=== PATIENT | female | born 1945 | race African-American/Black ===

== ENCOUNTER 2017-06-04 11:18 | Inpatient (IN) | payer MEDICARE ==
[2017-06-04 13:26] LABS: Basophils # (Auto) 0.1 K/mm3 (0.0-0.1); Basophils % (Auto) 0.7 % (0.0-1.8); Eosinophils # (Auto) 0.1 K/mm3 (0.0-0.4); Eosinophils % (Auto) 1.7 % (0.0-4.3); Hematocrit 38.7 % (30.3-42.9); Lymphocytes # (Auto) 1.9 K/mm3 (1.2-5.4); Lymphocytes % (Auto) 22.5 % (13.4-35.0); Mean Corpuscular HGB Conc 34 % (30-34); Mean Corpuscular Hemoglobin 30 pg (28-32); Mean Corpuscular Volume 90 fl (79-97); Monocytes # (Auto) 0.6 K/mm3 (0.0-0.8); Monocytes % (Auto) 7.2 % (0.0-7.3); Platelet Count 327 K/mm3 (140-440); Red Blood Count 4.29 M/mm3 (3.65-5.03); Red Cell Distribution Width 13.5 % (13.2-15.2)
--- NOTE | 2017-06-04 13:35 | XRay Report ---
ROUTINE CHEST, TWO VIEWS: HISTORY: Shortness of breath. No recent comparison. Mild cardiomegaly and large left pleural effusion or identified. The left lower lobe and lingula are compressed and non-aerated. The right lung is clear. The bony structures are grossly intact. IMPRESSION: Cardiomegaly. Large left pleural effusion.
[2017-06-04 13:44] LABS: BUN/Creatinine Ratio 20; Blood Urea Nitrogen 10 mg/dL (7-17); Calcium 9.4 mg/dL (8.4-10.2); Hemolysis Index 10
--- NOTE | 2017-06-04 17:03 | Emergency Department Report ---
ED Shortness of Breath HPI - General Chief Complaint: Dyspnea/Respdistress Stated Complaint: ANDREI,FLUID L LUNG Time Seen by Provider: 06/04/17 16:36 Source: patient, old records reviewed (no previous metabolic workup) Mode of arrival: Ambulatory Limitations: No Limitations - History of Present Illness Initial Comments: 72 year old female with a past medical history diabetes hypothyroidism with a history of partial thyroid resection presents to the hospital complains of dyspnea times one month. Symptoms primarily felt when trying to sleep. Positive orthopnea. Patient states symptoms worsened after getting a flu shot last week. Denies fever. Mild cough cough reported. Patient saw primary care doctor did an x-ray and noted a large left pleural effusion as an inpatient to the hospital for further treatment. Patient sent to the ED by Dr. Rosenbaum office [phone] [place] - Related Data Home Medications Medication Instructions Recorded Confirmed Last Taken Alendronate Sodium [Fosamax] 70 mg PO QWEEK 06/04/17 06/04/17 Unknown Fluticasone [Flonase] 1 spray INNOSTRIL DAILY 06/04/17 06/04/17 Unknown Levothyroxine [Synthroid] 75 mcg PO DAILY 06/04/17 06/04/17 Unknown Losartan [Cozaar] 50 mg PO DAILY 06/04/17 06/04/17 Unknown Pravastatin [Pravachol] 40 mg PO DAILY 06/04/17 06/04/17 Unknown metFORMIN [Glucophage] 500 mg PO BID 06/04/17 06/04/17 Unknown Allergies Allergy/AdvReac Type Severity Reaction Status Date / Time No Known Allergies Allergy Verified 06/04/17 12:29 ED Review of Systems ROS: Stated complaint: ANDREI,FLUID L LUNG Other details as noted in HPI Comment: All other systems reviewed and negative Other: Constitutional: No fevers chills. Possible weight loss Eyes: No eye pain visual changes or discharge ENT: No ear pain or throat pain Neck: Denies pain Respiratory: As per HPI Cardiovascular: Denies chest pain, palpitations, syncope GI: Denies abdominal pain, nausea, vomiting, diarrhea, : Denies dysuria Musculoskeletal: Denies back pain Skin: Denies rash, lesions, erythema Neurologic: Denies headache, numbness, weakness Psychiatric: Denies suicidal ideation, hallucinations ED Past Medical Hx - Past Medical History Hx Diabetes: Yes Additional medical history: Hypothyroidism - Surgical History Past Surgical History?: Yes Additional Surgical History: Partial tyroid resection - Medications Home Medications: Home Medications Medication Instructions Recorded Confirmed Last Taken Type Alendronate Sodium [Fosamax] 70 mg PO QWEEK 06/04/17 06/04/17 Unknown History Fluticasone [Flonase] 1 spray INNOSTRIL DAILY 06/04/17 06/04/17 Unknown History Levothyroxine [Synthroid] 75 mcg PO DAILY 06/04/17 06/04/17 Unknown History Losartan [Cozaar] 50 mg PO DAILY 06/04/17 06/04/17 Unknown History Pravastatin [Pravachol] 40 mg PO DAILY 06/04/17 06/04/17 Unknown History metFORMIN [Glucophage] 500 mg PO BID 06/04/17 06/04/17 Unknown History ED Physical Exam - General Limitations: No Limitations - Other Other exam information: General: No limitations, patient is alert in no acute distress Head exam: Atraumatic, normocephalic Eyes exam: Normal appearance ENT: Moist mucous membrane, normal oropharynx Neck exam: Normal inspection, full range of motion, no meningismus nontender Respiratory exam: Diminished breath sounds left lung field, no tachypnea or accessory muscle use Cardiovascular: Normal rate and rhythm Abdomen: Soft, nondistended, and nontender, with normal bowel sounds, no rebound, or guarding Extremity: Full range of motion normal inspection no deformity, no calf tenderness or edema Back: Normal Inspection, full range of motion, no tenderness Neurologic: Alert, oriented x3, cranial nerves intact, no motor or sensory deficit Psychiatric: normal affect, normal mood Skin: Warm, dry, intact ED Course Vital Signs 06/04/17 06/04/17 06/04/17 12:29 16:49 17:05 Temperature 97.5 F L 98.2 F Pulse Rate 91 H 90 Respiratory 22 20 Rate Blood Pressure 118/78 Blood Pressure 107/61 [Left] O2 Sat by Pulse 91 96 96 Oximetry - Reevaluation(s) Reevaluation #1: 06/04/17 17:18 Patient stable no distress noted - Consultations Consultation #1: 06/04/17 16:[address] Contreras bit shaver electronic train control technician will consult ED Medical Decision Making - Lab Data Result diagrams: 06/04/17 13:14 12/29/17 13:14 Lab Results 06/04/17 06/04/17 Range/Units 13:14 13:14 WBC 8.5 (4.5-11.0) K/mm3 RBC 4.29 (3.65-5.03) M/mm3 Hgb 13.0 (10.1-14.3) gm/dl Hct 38.7 (30.3-42.9) % MCV 90 (79-97) fl MCH 30 (28-32) pg MCHC 34 (30-34) % RDW 13.5 (13.2-15.2) % Plt Count 327 (140-440) K/mm3 Lymph % (Auto) 22.5 (13.4-35.0) % [place] % (Auto) 7.2 (0.0-7.3) % Eos % (Auto) 1.7 (0.0-4.3) % Baso % (Auto) 0.7 (0.0-1.8) % Lymph # 1.9 (1.2-5.4) K/mm3 [place] # 0.6 (0.0-0.8) K/mm3 Eos # 0.1 (0.0-0.4) K/mm3 Baso # 0.1 (0.0-0.1) K/mm3 Seg Neutrophils % 67.9 (40.0-70.0) % Seg Neutrophils # 5.7 (1.8-7.7) K/mm3 Sodium 142 (137-145) mmol/L Potassium 4.6 (3.6-5.0) mmol/L Chloride 100.6 (98-107) mmol/L Carbon Dioxide 27 (22-30) mmol/L Anion Gap 19 mmol/L BUN 10 (7-17) mg/dL Creatinine 0.5 L (0.7-1.2) mg/dL Estimated GFR > 60 ml/min BUN/Creatinine Ratio 20 % Glucose 103 H (65-100) mg/dL Calcium 9.4 (8.4-10.2) mg/dL - EKG Data -: EKG Interpreted by Me (anteroseptal infarct, low voltage precordial leads) EKG shows normal: sinus rhythm, axis (QRS 96), QRS complexes (102), ST-T waves ( no ST elevation) Rate: normal - EKG Data When compared to previous EKG there are: previous EKG unavailable - Radiology Data Radiology results: report reviewed Chest x-ray read by radiologist: Large left pleural effusion - Medical Decision Making Patient has dyspnea and orthopnea secondary to large left pleural effusion Clinically does not appear to be infectious at this time given the lack of fever or leukocytosis Vital signs normal without signs of hypoxia dyspnea, tachycardia this time Case discussed with Dr. Contreras bit shaver Plan to admit for further evaluation and treatment - Differential Diagnosis pneumonia, CHF, pleural effusion, PE, pericardial effusion, cancer Critical Care Time: No Critical care attestation.: If time is entered above; I have spent that time in minutes in the direct care of this critically ill patient, excluding procedure time. ED Disposition Clinical Impression: Pleural effusion, left, Dyspnea Disposition: OP ADMIT IP TO THIS HOSP Is pt being admited?: Yes Condition: Stable Time of Disposition: 17:03 (hospitalistLuciana Ayers infromed at 8:15)
[2017-06-04] MEDS ORDERED: MILK OF MAGNESIA PO PRN (22:39)
[2017-06-04] MEDS ORDERED: PERCOCET 5/325 PO PRN (22:39)
[2017-06-04] MEDS ORDERED: AMBIEN PO PRN (22:39)
[2017-06-04] MEDS ORDERED: PROVENTIL IH PRN (22:39)
[2017-06-04] MEDS ORDERED: DULCOLAX PR PRN (22:39)
[2017-06-04] MEDS ORDERED: TYLENOL PO PRN (22:39)
[2017-06-04] MEDS ORDERED: D50W (25GM) Syringe IV PRN (22:39)
--- NOTE | 2017-06-04 22:39 | History and Physical Report ---
History of Present Illness Date of examination: 06/04/17 Chief complaint: Dyspnea/Respdistress History of present illness: 72 year old female with a past medical history diabetes hypothyroidism with a history of partial thyroid resection presents to the hospital complains of dyspnea times one month. Symptoms primarily felt when trying to sleep. Positive orthopnea. Patient states symptoms worsened after getting a flu shot last week. Denies fever. Mild cough cough reported. Patient saw primary care doctor did an x-ray and noted a large left pleural effusion as an inpatient to the hospital for further treatment. Patient sent to the ED by Dr. Rosenbaum office [phone] [facility] Past History Past Medical History: diabetes, other (hypothyroidism) Past Surgical History: thyroidectomy, Other Social history: full code. denies: smoking, alcohol abuse, IV drug use Family history: no significant family history Medications and Allergies Allergies Allergy/AdvReac Type Severity Reaction Status Date / Time No Known Allergies Allergy Verified 06/04/17 12:29 Home Medications Medication Instructions Recorded Confirmed Last Taken Type Alendronate Sodium [Fosamax] 70 mg PO QWEEK 06/04/17 06/04/17 Unknown History Fluticasone [Flonase] 1 spray INNOSTRIL DAILY 06/04/17 06/04/17 Unknown History Levothyroxine [Synthroid] 75 mcg PO DAILY 06/04/17 06/04/17 Unknown History Losartan [Cozaar] 50 mg PO DAILY 06/04/17 06/04/17 Unknown History Pravastatin [Pravachol] 40 mg PO DAILY 06/04/17 06/04/17 Unknown History metFORMIN [Glucophage] 500 mg PO BID 06/04/17 06/04/17 Unknown History Review of Systems All systems: negative Exam - Physical Exam Narrative exam: General: No limitations, patient is alert in no acute distress Head exam: Atraumatic, normocephalic Eyes exam: Normal appearance ENT: Moist mucous membrane, normal oropharynx Neck exam: Normal inspection, full range of motion, no meningismus nontender Respiratory exam: Diminished breath sounds left lung field, no tachypnea or accessory muscle use Cardiovascular: Normal rate and rhythm Abdomen: Soft, nondistended, and nontender, with normal bowel sounds, no rebound, or guarding Extremity: Full range of motion normal inspection no deformity, no calf tenderness or edema Back: Normal Inspection, full range of motion, no tenderness Neurologic: Alert, oriented x3, cranial nerves intact, no motor or sensory deficit Psychiatric: normal affect, normal mood Skin: Warm, dry, intact - Constitutional Vitals: Temp Pulse Resp BP Pulse Ox 98.2 F 90 20 107/61 96 06/04/17 16:49 06/04/17 16:49 06/04/17 17:05 06/04/17 16:49 06/04/17 17:05 Results - Labs CBC & Chem 7: 06/04/17 13:14 06/04/17 13:14 Labs: Laboratory Last Values WBC 8.5 K/mm3 (4.5-11.0) 06/04/17 13:14 RBC 4.29 M/mm3 (3.65-5.03) 06/04/17 13:14 Hgb 13.0 gm/dl (10.1-14.3) 06/04/17 13:14 Hct 38.7 % (30.3-42.9) 06/04/17 13:14 MCV 90 fl (79-97) 06/04/17 13:14 MCH 30 pg (28-32) 06/04/17 13:14 MCHC 34 % (30-34) 06/04/17 13:14 RDW 13.5 % (13.2-15.2) 06/04/17 13:14 Plt Count 327 K/mm3 (140-440) 06/04/17 13:14 Lymph % (Auto) 22.5 % (13.4-35.0) 06/04/17 13:14 [place] % (Auto) 7.2 % (0.0-7.3) 06/04/17 13:14 Eos % (Auto) 1.7 % (0.0-4.3) 06/04/17 13:14 Baso % (Auto) 0.7 % (0.0-1.8) 06/04/17 13:14 Lymph # 1.9 K/mm3 (1.2-5.4) 06/04/17 13:14 [place] # 0.6 K/mm3 (0.0-0.8) 06/04/17 13:14 Eos # 0.1 K/mm3 (0.0-0.4) 06/04/17 13:14 Baso # 0.1 K/mm3 (0.0-0.1) 06/04/17 13:14 Seg Neutrophils % 67.9 % (40.0-70.0) 06/04/17 13:14 Seg Neutrophils # 5.7 K/mm3 (1.8-7.7) 06/04/17 13:14 Sodium 142 mmol/L (137-145) 06/04/17 13:14 Potassium 4.6 mmol/L (3.6-5.0) 06/04/17 13:14 Chloride 100.6 mmol/L (98-107) 06/04/17 13:14 Carbon Dioxide 27 mmol/L (22-30) 06/04/17 13:14 Anion Gap 19 mmol/L 06/04/17 13:14 BUN 10 mg/dL (7-17) 06/04/17 13:14 Creatinine 0.5 mg/dL (0.7-1.2) L 06/04/17 13:14 Estimated GFR > 60 ml/min 06/04/17 13:14 BUN/Creatinine Ratio 20 % 06/04/17 13:14 Glucose 103 mg/dL (65-100) H 06/04/17 13:14 Calcium 9.4 mg/dL (8.4-10.2) 06/04/17 13:14 - Imaging and Cardiology Imaging and Cardiology: EKG shows normal: sinus rhythm, axis (QRS 96), QRS complexes (102), ST-T waves ( no ST elevation) Rate: normal Chest x-ray read by radiologist: Large left pleural effusion Assessment and Plan Assessment and plan: Assessment and plan - * Large left pleural effusion likely parapneumonic * Left-sided pneumonia * Hypothyroidism * Diabetes mellitus Plan - Admitted to medical floor with telemetry Empiric antibiotics in the form of Rocephin and azithromycin Pulmonology Dr. Blank consulted for possible left-sided thoracentesis We will check hemoglobin A1c and monitor blood sugars with Accu-Cheks before every meal and daily at bedtime and cover with sliding scale insulin Check a fasting lipid panel and thyroid function panel Continue home Synthroid Continue home medications Monitor CBC and electrolytes Previous electrolytes when necessary as per protocol DVT GI prophylaxis as ordered Monitor and follow the patient closely VTE prophylaxis?: Chemical, Mechanical Plan of care discussed with patient/family: Yes
[2017-06-04] MEDS ORDERED: NACL 0.9% 1000 ML 1,000 ML IV SCH (23:00)
[2017-06-05 02:20] LABS: Chol/HDL Ratio 3.02 %
[2017-06-05] MEDS: DUONEB *Not for PRN Use IH SCH ×4 (03:17→20:29)
[2017-06-05 04:44] LABS: Basophils # (Auto) 0.1 K/mm3 (0.0-0.1); Basophils % (Auto) 0.9 % (0.0-1.8); Eosinophils # (Auto) 0.1 K/mm3 (0.0-0.4); Eosinophils % (Auto) 1.7 % (0.0-4.3); Hematocrit 36.5 % (30.3-42.9); Hemoglobin 12.4 gm/dl (10.1-14.3); Lymphocytes # (Auto) 2.1 K/mm3 (1.2-5.4); Lymphocytes % (Auto) 26.2 % (13.4-35.0); Mean Corpuscular HGB Conc 34 % (30-34); Mean Corpuscular Hemoglobin 31 pg (28-32); Mean Corpuscular Volume 90 fl (79-97); Monocytes # (Auto) 0.5 K/mm3 (0.0-0.8); Monocytes % (Auto) 6.3 % (0.0-7.3); Platelet Count 291 K/mm3 (140-440); Red Blood Count 4.05 M/mm3 (3.65-5.03); Red Cell Distribution Width 13.1 % (13.2-15.2)
[2017-06-05 04:52] LABS: INR 1.06 (0.87-1.13)
[2017-06-05 05:03] LABS: Alanine Aminotransferase 11 units/L (7-56); Albumin 3.3 g/dL (3.9-5); BUN/Creatinine Ratio 22; Blood Urea Nitrogen 13 mg/dL (7-17); Calcium 8.9 mg/dL (8.4-10.2); Hemolysis Index 5
[2017-06-05] MEDS: NOVOLOG SUB-Q SCH ×4 (08:00→21:52)
[2017-06-05] MEDS ORDERED: ROCEPHIN/NS 1 GM/50 ML 1 GM/50 ML BAG IV SCH (10:00)
[2017-06-05] MEDS ORDERED: ZITHROMAX 500 MG in NACL 0.9% 250ML 250 ML IV SCH (10:00)
[2017-06-05] MEDS ORDERED: ROCEPHIN 1 GM in NACL 0.9% 20 ML IV SCH (10:00)
[2017-06-05] MEDS: COZAAR PO SCH (10:30)
[2017-06-05] MEDS: PEPCID PO SCH ×2 (11:05→21:31)
[2017-06-05] MEDS: SENOKOT PO SCH ×2 (11:05→21:31)
[2017-06-05] MEDS: LOVENOX SUB-Q SCH (11:27)
[2017-06-05] MEDS: COLACE PO SCH ×2 (11:30→21:31)
--- NOTE | 2017-06-05 12:55 | Progress Note ---
Assessment and Plan Assessment and plan: Nurse Arianna uses as Slovenian boat captain Patient is a 72-year-old Slovenian speaking woman ( speaks Chilean but he is very hard of hearing) with a history of type 2 diabetes mellitus, hypothyroidism, osteoporosis and dyslipidemia first hospitalization here at [facility] because of shortness of breath and large left pleural effusion. Patient gives a history of negative mammogram 2 years ago. He denies any heart failure. BMI listed at 42.5 (pt maybe 108.8 lbs not 108.8kg ), which is a mistake. CXR read as cardiomegaly and large left pleural effusion -Left lung pleural effusion: Treat with IV diuretics, consult pulmonology., ? thoracentesis -Uncontrolled type 2 diabetes mellitus: Add ssi -Hypothyroidism: Continue Synthroid -Cardiomegaly on x-ray: Check Echocardiogram History Interval history: Patient was seen and examined. Follow-up on current diagnosis. Overnight uneventful. Patient denies any chest pain, shortness breath, nausea/vomiting or severe headaches. Imaging, nursing note, chart, labs and old chart reviewed. Discussed with patient. Hospitalist Physical - Physical exam Narrative exam: GEN: WDWN, NAD, AWAKE, ALERT, ORIENTATED x 3 HEENT: NCAT, EOMI, PERRL, OP Clear NECK: supple, no adenopathy, no thyromegaly, no JVD CVS/HEART: RRR, NORMAL S1S2, NO JVD, pulses present bilaterally CHEST/LUNGS: unilateral left crackles with diminished air entry and breaths sounds, Symmetrical chest expansion GI/Abdomen: soft, NTND, good bowel sounds, no guarding or rebound /Bladder: no suprapubic tenderness, no CVA or paraspinal tenderness Breast exam: symmetrically, no masses palpable to axillary area, performed with assistance of nurse ARIANNA EXT/Skin: no c/c/e, no obvious rash MSK: FROM x 4 Neuro: CN 2-12 grossly intact, no new focal deficits Psych: calm - Constitutional Vitals: Temp Pulse Resp BP Pulse Ox 98.6 F 85 18 95/61 96 06/05/17 07:52 06/05/17 10:30 06/05/17 09:35 06/05/17 10:30 06/05/17 09:22 Results - Labs CBC & Chem 7: 06/05/17 03:39 06/05/17 03:39 Labs: Laboratory Last Values WBC 7.9 K/mm3 (4.5-11.0) 06/05/17 03:39 RBC 4.05 M/mm3 (3.65-5.03) 06/05/17 03:39 Hgb 12.4 gm/dl (10.1-14.3) 06/05/17 03:39 Hct 36.5 % (30.3-42.9) 06/05/17 03:39 MCV 90 fl (79-97) 06/05/17 03:39 MCH 31 pg (28-32) 06/05/17 03:39 MCHC 34 % (30-34) 06/05/17 03:39 RDW 13.1 % (13.2-15.2) L 06/05/17 03:39 Plt Count 291 K/mm3 (140-440) 06/05/17 03:39 Lymph % (Auto) 26.2 % (13.4-35.0) 06/05/17 03:39 [place] % (Auto) 6.3 % (0.0-7.3) 06/05/17 03:39 Eos % (Auto) 1.7 % (0.0-4.3) 06/05/17 03:39 Baso % (Auto) 0.9 % (0.0-1.8) 06/05/17 03:39 Lymph # 2.1 K/mm3 (1.2-5.4) 06/05/17 03:39 [place] # 0.5 K/mm3 (0.0-0.8) 06/05/17 03:39 Eos # 0.1 K/mm3 (0.0-0.4) 06/05/17 03:39 Baso # 0.1 K/mm3 (0.0-0.1) 06/05/17 03:39 Seg Neutrophils % 64.9 % (40.0-70.0) 06/05/17 03:39 Seg Neutrophils # 5.1 K/mm3 (1.8-7.7) 06/05/17 03:39 PT 14.3 Sec. (12.2-14.9) 06/05/17 03:39 INR 1.06 (0.87-1.13) 06/05/17 03:39 APTT 29.0 Sec. (24.2-36.6) 06/05/17 03:39 Sodium 136 mmol/L (137-145) L 06/05/17 03:39 Potassium 3.7 mmol/L (3.6-5.0) 06/05/17 03:39 Chloride 97.4 mmol/L (98-107) L 06/05/17 03:39 Carbon Dioxide 25 mmol/L (22-30) 06/05/17 03:39 Anion Gap 17 mmol/L 06/05/17 03:39 BUN 13 mg/dL (7-17) 06/05/17 03:39 Creatinine 0.6 mg/dL (0.7-1.2) L 06/05/17 03:39 Estimated GFR > 60 ml/min 06/05/17 03:39 BUN/Creatinine Ratio 22 % 06/05/17 03:39 Glucose 206 mg/dL (65-100) H 06/05/17 03:39 POC Glucose 272 (70-105) H 06/05/17 11:29 Hemoglobin A1c 5.8 % (4-6) 06/05/17 01:05 Calcium 8.9 mg/dL (8.4-10.2) 06/05/17 03:39 Phosphorus 2.40 mg/dL (2.5-4.5) L 06/05/17 03:39 Magnesium 1.90 mg/dL (1.7-2.3) 06/05/17 03:39 Total Bilirubin 0.50 mg/dL (0.1-1.2) 06/05/17 03:39 AST 17 units/L (5-40) 06/05/17 03:39 ALT 11 units/L (7-56) 06/05/17 03:39 Alkaline Phosphatase 52 units/L (35-129) 06/05/17 03:39 Total Protein 6.3 g/dL (6.3-8.2) 06/05/17 03:39 Albumin 3.3 g/dL (3.9-5) L 06/05/17 03:39 Albumin/Globulin Ratio 1.1 % 06/05/17 03:39 Triglycerides 49 mg/dL (2-149) 06/05/17 01:05 Cholesterol 145 mg/dL (50-199) 06/05/17 01:05 LDL Cholesterol Direct 88 mg/dL (50-130) 06/05/17 01:05 HDL Cholesterol 48 mg/dL (40-59) 06/05/17 01:05 Cholesterol/HDL Ratio 3.02 % 06/05/17 01:05 TSH 1.930 mlU/mL (0.270-4.200) 06/05/17 01:05 Free T4 1.61 ng/dL (0.76-1.46) H 06/05/17 01:05
[2017-06-05] MEDS ORDERED: BENADRYL IV PRN (13:34)
[2017-06-05] MEDS: LASIX IV SCH (13:47)
--- NOTE | 2017-06-05 17:36 | Consultation ---
History of Present Illness Consult date: 06/05/17 Reason for consult: dyspnea, pleural effusion History of present illness: Juan J evaluated case of a 72-year-old female seen at the hospital to further with her with a history of recent pleural effusion and shortness of breath. The patient speaks limited Cypriot, conversation was with her also has some Cypriot limitations. Per chart review, " past medical history diabetes hypothyroidism with a history of partial thyroid resection presents to the hospital complains of dyspnea times one month. Symptoms primarily felt when trying to sleep. Positive orthopnea. Patient states symptoms worsened after getting a flu shot last week. Denies fever. Mild cough cough reported. Patient saw primary care doctor did an x-ray and noted a large left pleural effusion as an inpatient to the hospital for further treatment. Patient sent to the ED by Dr. Rosenbaum office [phone] [facility] also reports she might have been loose and some weight. Apparently no fever or chills but this is not fully clear in our conversation. No additional information available at this time. Past History Past Medical History: diabetes, other (hypothyroidism) Past Surgical History: thyroidectomy, Other Social history: full code. denies: smoking, alcohol abuse, IV drug use Family history: no significant family history Medications and Allergies Allergies Allergy/AdvReac Type Severity Reaction Status Date / Time No Known Allergies Allergy Verified 06/04/17 12:29 Home Medications Medication Instructions Recorded Confirmed Last Taken Type Alendronate Sodium [Fosamax] 70 mg PO QWEEK 06/04/17 06/04/17 Unknown History Fluticasone [Flonase] 1 spray INNOSTRIL DAILY 06/04/17 06/04/17 Unknown History Levothyroxine [Synthroid] 75 mcg PO DAILY 06/04/17 06/04/17 Unknown History Losartan [Cozaar] 50 mg PO DAILY 06/04/17 06/04/17 Unknown History Pravastatin [Pravachol] 40 mg PO DAILY 06/04/17 06/04/17 Unknown History metFORMIN [Glucophage] 500 mg PO BID 06/04/17 06/04/17 Unknown History Active Meds: Active Medications Acetaminophen (Tylenol) 650 mg PO Q4H PRN PRN Reason: Pain MILD(1-3)/Fever >100.5/VARELA Albuterol (Proventil) 2.5 mg IH Q3HRT PRN PRN Reason: Shortness Of Breath Albuterol/Ipratropium (Duoneb *Not For Prn Use*) 1 ampul IH Q6HRT [facility] Last Admin: 06/05/17 15:04 Dose: 1 ampul Bisacodyl (Dulcolax) 10 mg VA QDAY PRN PRN Reason: Constipation unrelieved by MOM Dextrose (D50w (25gm) Syringe) 50 ml IV PRN PRN PRN Reason: Hypoglycemia Diphenhydramine HCl (Benadryl) 25 mg IV Q6H PRN PRN Reason: Itching Last Admin: 06/05/17 13:47 Dose: 25 mg Docusate Sodium (Colace) 100 mg PO BID [facility] Last Admin: 06/05/17 11:30 Dose: 100 mg Enoxaparin Sodium (Lovenox) 40 mg SUB-Q QDAY [facility] Last Admin: 06/05/17 11:27 Dose: 40 mg Famotidine (Pepcid) 20 mg PO BID [facility] Last Admin: 06/05/17 11:05 Dose: 20 mg Furosemide (Lasix) 40 mg IV QDAY [facility] Last Admin: 06/05/17 13:47 Dose: 40 mg Insulin Aspart (Novolog) 0 units SUB-Q ACHS [facility] PRN Reason: Protocol Last Admin: 06/05/17 11:39 Dose: 6 units Levothyroxine Sodium (Synthroid) 75 mcg PO DAILY@0600 [facility] Losartan Potassium (Cozaar) 50 mg PO DAILY [facility] Last Admin: 06/05/17 10:30 Dose: Not Given Magnesium Hydroxide (Milk Of Magnesia) 30 ml PO Q4H PRN PRN Reason: Constipation Ondansetron HCl (Zofran) 4 mg IV Q8H PRN PRN Reason: N/V unrelieved by Reglan Oxycodone/Acetaminophen (Percocet 5/325) 1 tab PO Q6H PRN PRN Reason: Pain, Moderate (4-6) Pravastatin Sodium (Pravachol) 40 mg PO QHS [facility] Senna (Senokot) 8.6 mg PO Q12HR [facility] Last Admin: 06/05/17 11:05 Dose: 8.6 mg Zolpidem Tartrate (Ambien) 5 mg PO QHS PRN PRN Reason: Insomnia Review of Systems All systems: negative Constitutional: weight loss, fatigue, weakness Physical Examination Vital signs: Vital Signs Temp Pulse BP Pulse Ox 97.5 F L 91 H 118/78 91 06/04/17 12:29 06/04/17 12:29 06/04/17 12:29 06/04/17 12:29 General appearance: no acute distress Eyes: non-icteric ENT: oropharynx moist Neck: supple, no JVD Ascultation: Left: diminished breath sounds Percussion: Left: dull Cardiovascular: regular rate and rhythm Gastrointestinal: normoactive bowel sounds, non-distended Integumentary: normal Extremities: no cyanosis Musculoskeletal: no deformities normal mental status, non-focal exam mood appropriate, affect normal Results - Laboratory Findings CBC and BMP: 06/05/17 03:39 06/05/17 03:39 PT/INR, D-dimer PT 14.3 Sec. (12.2-14.9) 06/05/17 03:39 INR 1.06 (0.87-1.13) 06/05/17 03:39 Abnormal lab findings: Abnormal Labs 06/04/17 06/05/17 06/05/17 13:14 01:05 01:07 RDW Sodium Chloride Creatinine 0.5 L Glucose 103 H POC Glucose 62 L Phosphorus Albumin Free T4 1.61 H 06/05/17 06/05/17 06/05/17 01:37 03:39 03:39 RDW 13.1 L Sodium 136 L Chloride 97.4 L Creatinine 0.6 L Glucose 206 H POC Glucose 135 H Phosphorus 2.40 L Albumin 3.3 L Free T4 06/05/17 06/05/17 11:29 16:50 RDW Sodium Chloride Creatinine Glucose POC Glucose 272 H 232 H Phosphorus Albumin Free T4 - Diagnostic Findings Chest x-ray: report reviewed, image reviewed Assessment and Plan Dyspnea. Secondary to pleural effusion. Left pleural effusion of unknown etiology. Recommendations Continue oxygen support as needed for dyspnea and hypoxemia. Patient will need US had a thoracentesis. Recommend sampling for LDH, glucose, protein, pH, triglycerides, cell cytology. Also Gram stain and differential. Additional procedures SAMPLE the be left at lab for additional tests such as NAD , if deemed necessary. CA-125 PPD or IGRA DVT prophylaxis Treatment for pneumonia probably optional at this point but can't continue antibiotics if necessary. Thanks. Will follow up.
[2017-06-05] MEDS: PRAVACHOL PO SCH (21:31)
[2017-06-05] MEDS: SYNTHROID PO SCH (21:32)
[2017-06-06] MEDS: DUONEB *Not for PRN Use IH SCH ×4 (02:01→21:27)
[2017-06-06] MEDS: SYNTHROID PO SCH (06:03)
[2017-06-06] MEDS: NOVOLOG SUB-Q SCH ×4 (09:48→21:49)
[2017-06-06] MEDS: LASIX IV SCH (10:47)
[2017-06-06] MEDS: SENOKOT PO SCH ×2 (10:47→21:50)
[2017-06-06] MEDS: LOVENOX SUB-Q SCH (10:47)
[2017-06-06] MEDS: COLACE PO SCH ×2 (10:47→21:50)
[2017-06-06] MEDS: COZAAR PO SCH (10:48)
[2017-06-06] MEDS: PEPCID PO SCH ×2 (11:30→21:50)
[2017-06-06 11:56] LABS: Alanine Aminotransferase 12 units/L (7-56); Albumin 3.9 g/dL (3.9-5); BUN/Creatinine Ratio 26; Blood Urea Nitrogen 21 mg/dL (7-17); Calcium 9.8 mg/dL (8.4-10.2); Hemolysis Index 19
--- NOTE | 2017-06-06 14:25 | Progress Note ---
Assessment and Plan Assessment and plan: Son in Law Rafa used as Hong Konger advertising display rotator Patient is a 72-year-old Hong Konger speaking woman ( speaks Cambodian but he is very hard of hearing) with a history of type 2 diabetes mellitus, hypothyroidism, osteoporosis and dyslipidemia first hospitalization here at [facility] because of shortness of breath and large left pleural effusion. Patient gives a history of negative mammogram 2 years ago. He denies any heart failure. CXR read as cardiomegaly and large left pleural effusion -Left lung pleural effusion: Treat with IV diuretics, consult pulmonology, ? thoracentesis -Uncontrolled type 2 diabetes mellitus: Add ssi -Hypothyroidism: Continue Synthroid -Cardiomegaly on x-ray: Check Echocardiogram 06/06/17: Echo pending, I ordered us guided thoracentesis per Pulmonology, risks discussed History Interval history: Patient was seen and examined. Follow-up on current diagnosis. Overnight uneventful. Patient denies any chest pain, shortness breath, nausea/vomiting or severe headaches. Imaging, nursing note, chart, labs and old chart reviewed. Discussed with patient. Hospitalist Physical - Physical exam Narrative exam: GEN: WDWN, NAD, AWAKE, ALERT, ORIENTATED x 3 HEENT: NCAT, EOMI, PERRL, OP Clear NECK: supple, no adenopathy, no thyromegaly, no JVD CVS/HEART: RRR, NORMAL S1S2, NO JVD, pulses present bilaterally CHEST/LUNGS: unilateral left crackles with diminished air entry and breaths sounds, Symmetrical chest expansion GI/Abdomen: soft, NTND, good bowel sounds, no guarding or rebound /Bladder: no suprapubic tenderness, no CVA or paraspinal tenderness Breast exam: symmetrically, no masses palpable to axillary area, performed with assistance of nurse MY EXT/Skin: no c/c/e, no obvious rash MSK: FROM x 4 Neuro: CN 2-12 grossly intact, no new focal deficits Psych: calm - Constitutional Vitals: Temp Pulse Resp BP Pulse Ox 98.4 F 95 H 16 107/60 95 06/06/17 09:43 06/06/17 12:23 06/06/17 12:23 06/06/17 10:48 06/06/17 12:22 Results - Labs CBC & Chem 7: 06/05/17 03:39 06/06/17 11:15 Labs: Laboratory Last Values WBC 7.9 K/mm3 (4.5-11.0) 06/05/17 03:39 RBC 4.05 M/mm3 (3.65-5.03) 06/05/17 03:39 Hgb 12.4 gm/dl (10.1-14.3) 06/05/17 03:39 Hct 36.5 % (30.3-42.9) 06/05/17 03:39 MCV 90 fl (79-97) 06/05/17 03:39 MCH 31 pg (28-32) 06/05/17 03:39 MCHC 34 % (30-34) 06/05/17 03:39 RDW 13.1 % (13.2-15.2) L 06/05/17 03:39 Plt Count 291 K/mm3 (140-440) 06/05/17 03:39 Lymph % (Auto) 26.2 % (13.4-35.0) 06/05/17 03:39 [place] % (Auto) 6.3 % (0.0-7.3) 06/05/17 03:39 Eos % (Auto) 1.7 % (0.0-4.3) 06/05/17 03:39 Baso % (Auto) 0.9 % (0.0-1.8) 06/05/17 03:39 Lymph # 2.1 K/mm3 (1.2-5.4) 06/05/17 03:39 [place] # 0.5 K/mm3 (0.0-0.8) 06/05/17 03:39 Eos # 0.1 K/mm3 (0.0-0.4) 06/05/17 03:39 Baso # 0.1 K/mm3 (0.0-0.1) 06/05/17 03:39 Seg Neutrophils % 64.9 % (40.0-70.0) 06/05/17 03:39 Seg Neutrophils # 5.1 K/mm3 (1.8-7.7) 06/05/17 03:39 PT 14.3 Sec. (12.2-14.9) 06/05/17 03:39 INR 1.06 (0.87-1.13) 06/05/17 03:39 APTT 29.0 Sec. (24.2-36.6) 06/05/17 03:39 Sodium 137 mmol/L (137-145) 06/06/17 11:15 Potassium 4.0 mmol/L (3.6-5.0) 06/06/17 11:15 Chloride 95.0 mmol/L (98-107) L 06/06/17 11:15 Carbon Dioxide 23 mmol/L (22-30) 06/06/17 11:15 Anion Gap 23 mmol/L 06/06/17 11:15 BUN 21 mg/dL (7-17) H 06/06/17 11:15 Creatinine 0.8 mg/dL (0.7-1.2) 06/06/17 11:15 Estimated GFR > 60 ml/min 06/06/17 11:15 BUN/Creatinine Ratio 26 % 06/06/17 11:15 Glucose 153 mg/dL (65-100) H 06/06/17 11:15 POC Glucose 125 (70-105) H 06/06/17 11:57 Hemoglobin A1c 5.8 % (4-6) 06/05/17 01:05 Calcium 9.8 mg/dL (8.4-10.2) 06/06/17 11:15 Phosphorus 2.40 mg/dL (2.5-4.5) L 06/05/17 03:39 Magnesium 1.90 mg/dL (1.7-2.3) 06/05/17 03:39 Total Bilirubin 0.40 mg/dL (0.1-1.2) 06/06/17 11:15 AST 16 units/L (5-40) 06/06/17 11:15 ALT 12 units/L (7-56) 06/06/17 11:15 Alkaline Phosphatase 50 units/L (35-129) 06/06/17 11:15 Lactate Dehydrogenase 263 units/L (91-180) H 06/06/17 11:15 Total Protein 7.2 g/dL (6.3-8.2) 06/06/17 11:15 Albumin 3.9 g/dL (3.9-5) 06/06/17 11:15 Albumin/Globulin Ratio 1.2 % 06/06/17 11:15 Triglycerides 49 mg/dL (2-149) 06/05/17 01:05 Cholesterol 145 mg/dL (50-199) 06/05/17 01:05 LDL Cholesterol Direct 88 mg/dL (50-130) 06/05/17 01:05 HDL Cholesterol 48 mg/dL (40-59) 06/05/17 01:05 Cholesterol/HDL Ratio 3.02 % 06/05/17 01:05 TSH 1.930 mlU/mL (0.270-4.200) 06/05/17 01:05 Free T4 1.61 ng/dL (0.76-1.46) H 06/05/17 01:05
[2017-06-06] MEDS ORDERED: NACL ONE (15:38)
--- NOTE | 2017-06-06 15:52 | Progress Note ---
Assessment and Plan Dyspnea. Secondary to pleural effusion. Left pleural effusion of unknown etiology. Echo w lower lobe density,mass?- malignacy ? Also w Ef 45%- CHF ( 10 % CHF effusion are LT, typically not massive) Recommendations Discussed with hospitalist and pt, Continue oxygen support Scheduled x US had a thoracentesis. Recommend sampling for LDH, glucose, protein, pH, triglycerides, cell cytology. Also Gram stain and differential. Additional procedures SAMPLE the be left at lab for additional tests such as NAD , if deemed necessary. Monitor but no distress at this time CA-125 PPD or IGRA Chest CT ordered for further review Subjective Date of service: 06/06/17 Interval history: Limited info, and pt states she feels better.No cough Objective Vital Signs - 12hr 06/06/17 06/06/17 06/06/17 07:31 09:43 10:48 Temperature 98.4 F Pulse Rate 84 84 Pulse Rate [ Bilateral] Respiratory 18 20 Rate Respiratory Rate [Bilateral ] Blood Pressure 107/60 107/60 O2 Sat by Pulse 98 Oximetry 06/06/17 06/06/17 06/06/17 12:00 12:22 12:23 Temperature Pulse Rate Pulse Rate [ 94 H 95 H Bilateral] Respiratory Rate Respiratory 18 16 Rate [Bilateral ] Blood Pressure O2 Sat by Pulse 95 Oximetry 06/06/17 13:45 Temperature 98.4 F Pulse Rate 110 H Pulse Rate [ Bilateral] Respiratory 18 Rate Respiratory Rate [Bilateral ] Blood Pressure 97/58 O2 Sat by Pulse 92 Oximetry Constitutional: no acute distress Eyes: non-icteric ENT: oropharynx moist Neck: supple, no JVD Ascultation: Left: diminished breath sounds Percussion: Left: dull Cardiovascular: regular rate and rhythm Gastrointestinal: normoactive bowel sounds, non-distended Integumentary: normal Extremities: no cyanosis Neurologic: normal mental status, non-focal exam Psychiatric: mood appropriate, affect normal CBC and BMP: 06/05/17 03:39 06/06/17 11:15 ABG, PT/INR, D-dimer: PT/INR, D-dimer PT 14.3 Sec. (12.2-14.9) 06/05/17 03:39 INR 1.06 (0.87-1.13) 06/05/17 03:39 Abnormal lab findings: Abnormal Labs 06/04/17 06/05/1717 13:14 01:05 01:07 RDW Sodium Chloride BUN Creatinine 0.5 L Glucose 103 H POC Glucose 62 L Phosphorus Lactate Dehydrogenase Albumin Free T4 1.61 H 06/05/17 06/05/17 06/05/17 01:37 03:39 03:39 RDW 13.1 L Sodium 136 L Chloride 97.4 L BUN Creatinine 0.6 L Glucose 206 H POC Glucose 135 H Phosphorus 2.40 L Lactate Dehydrogenase Albumin 3.3 L Free T4 06/05/17 06/05/17 06/05/17 11:29 16:50 21:24 RDW Sodium Chloride BUN Creatinine Glucose POC Glucose 272 H 232 H 253 H Phosphorus Lactate Dehydrogenase Albumin Free T4 06/06/17 06/06/17 06/06/17 09:46 11:15 11:57 RDW Sodium Chloride 95.0 L BUN 21 H Creatinine Glucose 153 H POC Glucose 133 H 125 H Phosphorus Lactate Dehydrogenase 263 H Albumin Free T4 Chest x-ray: image reviewed
--- NOTE | 2017-06-06 16:57 | Cat Scan Report ---
FINAL REPORT EXAM: CT CHEST W CON HISTORY: LT pleural effusion,lowerlobe density/mass on echo TECHNIQUE: Axial images were performed from the lung apices to the bases following IV contrast administration. Multiplanar reformats are performed on the acquisition scanner. Comparison: None FINDINGS: Glass Ribbon Machine Operator film demonstrates large left pleural effusion. There is a very large left pleural effusion with consolidated left lung and only minimal aeration of the residual left upper lobe. Shift of the heart and mediastinum to the right. Aorta and pulmonary arteries are unremarkable centrally. Cannot assess for peripheral pulmonary arterial embolus. Bilateral diffuse interstitial infiltrates are present. There is no pericardial effusion. The airways are patent. The imaged upper abdomen is unremarkable. There is no mediastinal or hilar adenopathy. There is plaque like left primarily posterior and dependent pleural thickening. There is mild scoliosis. There are no focal bony lesions. IMPRESSION: Very large left pleural effusion with consolidated left lower lobe and mild residual aeration left upper lobe. Shift of the heart and mediastinum into the right hemithorax. No definite mass lesion or hilar adenopathy. Mild rind like pleural thickening. Normal heart size. No pericardial effusion. Diffuse interstitial infiltrates of the aerated lung may represent edema or interstitial infiltrate of cells. Imaged upper abdomen is unremarkable.
[2017-06-06] MEDS: PRAVACHOL PO SCH (21:51)
[2017-06-07] MEDS: DUONEB *Not for PRN Use IH SCH ×5 (01:45→19:23)
[2017-06-07] MEDS: SYNTHROID PO SCH (05:33)
[2017-06-07] MEDS: NOVOLOG SUB-Q SCH ×4 (08:30→23:08)
[2017-06-07] MEDS: LASIX IV SCH (10:23)
[2017-06-07] MEDS: LOVENOX SUB-Q SCH (10:24)
[2017-06-07] MEDS: COZAAR PO SCH (10:29)
[2017-06-07] MEDS: COLACE PO SCH ×2 (10:29→21:06)
[2017-06-07] MEDS: SENOKOT PO SCH ×2 (10:30→21:07)
[2017-06-07] MEDS: PEPCID PO SCH ×2 (10:30→21:07)
--- NOTE | 2017-06-07 11:53 | Procedure Note ---
Date of procedure: 06/07/17 Pre-op diagnosis: left pleural effusion Post-op diagnosis: other (left hemothorax) Procedure: US thoracentesis Anesthesia: local Surgeon: ALEXANDR GODINEZ Estimated blood loss: none Pathology: list (120cc) Specimen disposition: to lab Condition: stable Disposition: floor
--- NOTE | 2017-06-07 12:04 | Ultrasound Report ---
ULTRASOUND THORACENTESIS History: Left pleural effusion Description of procedure: Informed consent was obtained. Sterile technique was utilized. 1% lidocaine for skin anesthesia. Using ultrasound guidance, a 5 Israeli centesis needle was advanced in to the left pleural space. There was spontaneous return of bloody fluid. 1.5 L of fluid was aspirated. 120 cc of fluid was sent to the lab for analysis. The patient tolerated the procedure without difficulty. A followup chest x-ray was ordered. Impression: Successful ultrasound-guided left thoracentesis.
--- NOTE | 2017-06-07 12:54 | Progress Note ---
Assessment and Plan Assessment and plan: Son in Law Rafa used as Lebanese associate account manager Patient is a 72-year-old Lebanese speaking woman ( speaks Serbian but he is very hard of hearing) with a history of type 2 diabetes mellitus, hypothyroidism, osteoporosis and dyslipidemia first hospitalization here at because of shortness of breath and large left pleural effusion. Patient gives a history of negative mammogram 2 years ago. He denies any heart failure. CXR read as cardiomegaly and large left pleural effusion -Left lung pleural effusion: Treat with IV diuretics, consult pulmonology, ? thoracentesis -Uncontrolled type 2 diabetes mellitus: Add ssi -Hypothyroidism: Continue Synthroid -Cardiomegaly on x-ray: Check Echocardiogram 06/06/17: Echo pending, I ordered us guided thoracentesis per Pulmonology, risks discussed 06/07/2017: "Date of procedure: 06/07/17 Pre-op diagnosis: left pleural effusion Post-op diagnosis: other (left hemothorax) Procedure: US thoracentesis Anesthesia: local Surgeon: ALEXANDR GODINEZ Estimated blood loss: none Pathology: list (120cc) Specimen disposition: to lab Condition: stable Disposition: floor" d/w son in law and patient that can this could be lung cancer, no history of trauma. ECHO still pending History Interval history: Patient was seen and examined. Follow-up on current diagnosis. Overnight uneventful. Patient denies any chest pain, shortness breath, nausea/vomiting or severe headaches. Imaging, nursing note, chart, labs and old chart reviewed. Discussed with patient. Hospitalist Physical - Physical exam Narrative exam: GEN: WDWN, NAD, AWAKE, ALERT, ORIENTATED x 3 HEENT: NCAT, EOMI, PERRL, OP Clear NECK: supple, no adenopathy, no thyromegaly, no JVD CVS/HEART: RRR, NORMAL S1S2, NO JVD, pulses present bilaterally CHEST/LUNGS: unilateral left crackles with diminished air entry and breaths sounds, Symmetrical chest expansion GI/Abdomen: soft, NTND, good bowel sounds, no guarding or rebound /Bladder: no suprapubic tenderness, no CVA or paraspinal tenderness Breast exam: symmetrically, no masses palpable to axillary area, performed with assistance of nurse MY EXT/Skin: no c/c/e, no obvious rash MSK: FROM x 4 Neuro: CN 2-12 grossly intact, no new focal deficits Psych: calm - Constitutional Vitals: Temp Pulse Resp BP Pulse Ox 97.9 F 83 18 92/50 97 06/07/17 08:13 06/07/17 10:29 06/07/17 08:50 06/07/17 10:29 06/07/17 08:40 Results - Labs CBC & Chem 7: 06/05/17 03:39 06/06/17 11:15 Labs: Laboratory Last Values WBC 7.9 K/mm3 (4.5-11.0) 06/05/17 03:39 RBC 4.05 M/mm3 (3.65-5.03) 06/05/17 03:39 Hgb 12.4 gm/dl (10.1-14.3) 06/05/17 03:39 Hct 36.5 % (30.3-42.9) 06/05/17 03:39 MCV 90 fl (79-97) 06/05/17 03:39 MCH 31 pg (28-32) 06/05/17 03:39 MCHC 34 % (30-34) 06/05/17 03:39 RDW 13.1 % (13.2-15.2) L 06/05/17 03:39 Plt Count 291 K/mm3 (140-440) 06/05/17 03:39 Lymph % (Auto) 26.2 % (13.4-35.0) 06/05/17 03:39 [place] % (Auto) 6.3 % (0.0-7.3) 06/05/17 03:39 Eos % (Auto) 1.7 % (0.0-4.3) 06/05/17 03:39 Baso % (Auto) 0.9 % (0.0-1.8) 06/05/17 03:39 Lymph # 2.1 K/mm3 (1.2-5.4) 06/05/17 03:39 [place] # 0.5 K/mm3 (0.0-0.8) 06/05/17 03:39 Eos # 0.1 K/mm3 (0.0-0.4) 06/05/17 03:39 Baso # 0.1 K/mm3 (0.0-0.1) 06/05/17 03:39 Seg Neutrophils % 64.9 % (40.0-70.0) 06/05/17 03:39 Seg Neutrophils # 5.1 K/mm3 (1.8-7.7) 06/05/17 03:39 PT 14.3 Sec. (12.2-14.9) 06/05/17 03:39 INR 1.06 (0.87-1.13) 06/05/17 03:39 APTT 29.0 Sec. (24.2-36.6) 06/05/17 03:39 Sodium 137 mmol/L (137-145) 06/06/17 11:15 Potassium 4.0 mmol/L (3.6-5.0) 06/06/17 11:15 Chloride 95.0 mmol/L (98-107) L 06/06/17 11:15 Carbon Dioxide 23 mmol/L (22-30) 06/06/17 11:15 Anion Gap 23 mmol/L 06/06/17 11:15 BUN 21 mg/dL (7-17) H 06/06/17 11:15 Creatinine 0.8 mg/dL (0.7-1.2) 06/06/17 11:15 Estimated GFR > 60 ml/min 06/06/17 11:15 BUN/Creatinine Ratio 26 % 06/06/17 11:15 Glucose 153 mg/dL (65-100) H 06/06/17 11:15 POC Glucose 115 (70-105) H 06/07/17 12:34 Hemoglobin A1c 5.8 % (4-6) 06/05/17 01:05 Calcium 9.8 mg/dL (8.4-10.2) 06/06/17 11:15 Phosphorus 2.40 mg/dL (2.5-4.5) L 06/05/17 03:39 Magnesium 1.90 mg/dL (1.7-2.3) 06/05/17 03:39 Total Bilirubin 0.40 mg/dL (0.1-1.2) 06/06/17 11:15 AST 16 units/L (5-40) 06/06/17 11:15 ALT 12 units/L (7-56) 06/06/17 11:15 Alkaline Phosphatase 50 units/L (35-129) 06/06/17 11:15 Lactate Dehydrogenase 263 units/L (91-180) H 06/06/17 11:15 Total Protein 7.2 g/dL (6.3-8.2) 06/06/17 11:15 Albumin 3.9 g/dL (3.9-5) 06/06/17 11:15 Albumin/Globulin Ratio 1.2 % 06/06/17 11:15 Triglycerides 49 mg/dL (2-149) 06/05/17 01:05 Cholesterol 145 mg/dL (50-199) 06/05/17 01:05 LDL Cholesterol Direct 88 mg/dL (50-130) 06/05/17 01:05 HDL Cholesterol 48 mg/dL (40-59) 06/05/17 01:05 Cholesterol/HDL Ratio 3.02 % 06/05/17 01:05 TSH 1.930 mlU/mL (0.270-4.200) 06/05/17 01:05 Free T4 1.61 ng/dL (0.76-1.46) H 06/05/17 01:05
--- NOTE | 2017-06-07 12:55 | XRay Report ---
AP CHEST: HISTORY: Short of breath, left pleural fluid collection, recent thoracentesis Recent ultrasound-guided left thoracentesis was performed in which 1.5 L of bloody fluid was removed. The left pleural effusion has decreased by at least 75%. A small left pleural effusion persists. No pneumothorax. There is compressive atelectasis at the left lung base. The right lung is clear. Heart size is grossly normal. IMPRESSION: Decreased left pleural fluid collection. No pneumothorax.
--- NOTE | 2017-06-07 13:46 | Progress Note ---
Assessment and Plan 72 y/o with massive left sided bloody effusion. 1. Follow up cytology 2. Should have had CT done after effusion was drained to better evaluate lung parenchyma but will not repeat now. 3. Effusion could come back rapidly, monitor for signs of respiratory distress Subjective Date of service: 06/07/17 Interval history: Bloody effusion removed but had CT done before fluid was drained. Objective Vital Signs - 12hr 06/07/17 06/07/17 06/07/17 02:40 02:49 03:01 Temperature Pulse Rate Pulse Rate [ Anterior Bilateral Throughout] Pulse Rate [ 95 H Apical] Pulse Rate [ 92 H 95 H Bilateral] Respiratory 20 Rate Respiratory Rate [Anterior Bilateral Throughout] Respiratory 18 14 Rate [Bilateral ] Blood Pressure O2 Sat by Pulse Oximetry 06/07/17 06/07/17 06/07/17 03:39 04:56 08:13 Temperature 97.7 F 97.9 F Pulse Rate 93 H 83 Pulse Rate [ Anterior Bilateral Throughout] Pulse Rate [ Apical] Pulse Rate [ Bilateral] Respiratory 18 16 Rate Respiratory Rate [Anterior Bilateral Throughout] Respiratory Rate [Bilateral ] Blood Pressure 110/47 92/50 O2 Sat by Pulse 97 Oximetry 06/07/17 06/07/17 06/07/17 08:40 08:50 10:29 Temperature Pulse Rate 83 Pulse Rate [ 77 87 Anterior Bilateral Throughout] Pulse Rate [ Apical] Pulse Rate [ Bilateral] Respiratory Rate Respiratory 18 18 Rate [Anterior Bilateral Throughout] Respiratory Rate [Bilateral ] Blood Pressure 92/50 O2 Sat by Pulse 97 Oximetry Constitutional: no acute distress Eyes: non-icteric ENT: oropharynx moist Neck: supple, no JVD Ascultation: Left: diminished breath sounds Percussion: Left: dull Cardiovascular: regular rate and rhythm Gastrointestinal: normoactive bowel sounds, non-distended Integumentary: normal Extremities: no cyanosis Neurologic: normal mental status, non-focal exam Psychiatric: mood appropriate, affect normal CBC and BMP: 06/05/17 03:39 06/06/17 11:15 ABG, PT/INR, D-dimer: PT/INR, D-dimer PT 14.3 Sec. (12.2-14.9) 06/05/17 03:39 INR 1.06 (0.87-1.13) 06/05/17 03:39 Abnormal lab findings: Abnormal Labs 06/04/17 06/05/17 06/05/17 13:14 01:05 01:07 RDW Sodium Chloride BUN Creatinine 0.5 L Glucose 103 H POC Glucose 62 L Phosphorus Lactate Dehydrogenase Albumin Free T4 1.61 H 06/05/17 06/05/17 06/05/17 01:37 03:39 03:39 RDW 13.1 L Sodium 136 L Chloride 97.4 L BUN Creatinine 0.6 L Glucose 206 H POC Glucose 135 H Phosphorus 2.40 L Lactate Dehydrogenase Albumin 3.3 L Free T4 06/05/17 06/05/17 06/05/17 11:29 16:50 21:24 RDW Sodium Chloride BUN Creatinine Glucose POC Glucose 272 H 232 H 253 H Phosphorus Lactate Dehydrogenase Albumin Free T4 06/06/17 06/06/17 06/06/17 09:46 11:15 11:57 RDW Sodium Chloride 95.0 L BUN 21 H Creatinine Glucose 153 H POC Glucose 133 H 125 H Phosphorus Lactate Dehydrogenase 263 H Albumin Free T4 06/06/17 06/06/17 06/07/17 16:34 21:49 12:34 RDW Sodium Chloride BUN Creatinine Glucose POC Glucose 211 H 129 H 115 H Phosphorus Lactate Dehydrogenase Albumin Free T4
[2017-06-07 13:49] LABS: pH, Body Fluid 7.428
[2017-06-07 14:06] LABS: Total Cells Counted 100 /mm3
[2017-06-07] MEDS: PRAVACHOL PO SCH (21:06)
[2017-06-08] MEDS: ZOFRAN IV PRN ×2 (00:52→14:52)
[2017-06-08] MEDS: DUONEB *Not for PRN Use IH SCH ×4 (02:37→22:03)
[2017-06-08] MEDS: SYNTHROID PO SCH (06:10)
--- NOTE | 2017-06-08 09:56 | Progress Note ---
Assessment and Plan Assessment and plan: Nathan Lee as [place] sap pp consultant Patient is a 72-year-old [place] speaking woman ( speaks Nigerian but he is very hard of hearing) with a history of type 2 diabetes mellitus, hypothyroidism, osteoporosis and dyslipidemia first hospitalization here at [facility] because of shortness of breath and large left pleural effusion. Patient gives a history of negative mammogram 2 years ago. He denies any heart failure. CXR read as cardiomegaly and large left pleural effusion -Left lung pleural effusion: Treat with IV diuretics, consult pulmonology, ? thoracentesis -Uncontrolled type 2 diabetes mellitus: Add ssi -Hypothyroidism: Continue Synthroid -Cardiomegaly on x-ray: Check Echocardiogram 06/06/17: Echo pending, I ordered us guided thoracentesis per Pulmonology, risks discussed 06/07/2017: "Date of procedure: 06/07/17 Pre-op diagnosis: left pleural effusion Post-op diagnosis: other (left hemothorax) Procedure: US thoracentesis Anesthesia: local Surgeon: ALEXANDR GODINEZ Estimated blood loss: none Pathology: list (120cc) Specimen disposition: to lab Condition: stable Disposition: floor" d/w son in law and patient that can this could be lung cancer, no history of trauma. ECHO still pending 06/08/2017 Thoracentesis results pending. SonJesus used as sap pp consultant, he doesn't want to tell his mother the results of the test==>consults to Ethics History Interval history: Patient was seen and examined. Follow-up on current diagnosis. Overnight uneventful. Patient denies any chest pain, shortness breath, nausea/vomiting or severe headaches. Imaging, nursing note, chart, labs and old chart reviewed. Discussed with patient. Hospitalist Physical - Physical exam Narrative exam: GEN: WDWN, NAD, AWAKE, ALERT, ORIENTATED x 3 HEENT: NCAT, EOMI, PERRL, OP Clear NECK: supple, no adenopathy, no thyromegaly, no JVD CVS/HEART: RRR, NORMAL S1S2, NO JVD, pulses present bilaterally CHEST/LUNGS: unilateral left crackles with diminished air entry and breaths sounds, Symmetrical chest expansion GI/Abdomen: soft, NTND, good bowel sounds, no guarding or rebound /Bladder: no suprapubic tenderness, no CVA or paraspinal tenderness Breast exam: symmetrically, no masses palpable to axillary area, performed with assistance of nurse MY EXT/Skin: no c/c/e, no obvious rash MSK: FROM x 4 Neuro: CN 2-12 grossly intact, no new focal deficits Psych: calm - Constitutional Vitals: Temp Pulse Resp BP Pulse Ox 97.3 F L 86 16 101/53 95 06/08/17 07:37 06/08/17 07:37 06/08/17 07:37 06/08/17 07:37 06/08/17 07:37 Results - Labs CBC & Chem 7: 06/05/17 03:39 06/06/17 11:15 Labs: Laboratory Last Values WBC 7.9 K/mm3 (4.5-11.0) 06/05/17 03:39 RBC 4.05 M/mm3 (3.65-5.03) 06/05/17 03:39 Hgb 12.4 gm/dl (10.1-14.3) 06/05/17 03:39 Hct 36.5 % (30.3-42.9) 06/05/17 03:39 MCV 90 fl (79-97) 06/05/17 03:39 MCH 31 pg (28-32) 06/05/17 03:39 MCHC 34 % (30-34) 06/05/17 03:39 RDW 13.1 % (13.2-15.2) L 06/05/17 03:39 Plt Count 291 K/mm3 (140-440) 06/05/17 03:39 Lymph % (Auto) 26.2 % (13.4-35.0) 06/05/17 03:39 [place] % (Auto) 6.3 % (0.0-7.3) 06/05/17 03:39 Eos % (Auto) 1.7 % (0.0-4.3) 06/05/17 03:39 Baso % (Auto) 0.9 % (0.0-1.8) 06/05/17 03:39 Lymph # 2.1 K/mm3 (1.2-5.4) 06/05/17 03:39 [place] # 0.5 K/mm3 (0.0-0.8) 06/05/17 03:39 Eos # 0.1 K/mm3 (0.0-0.4) 06/05/17 03:39 Baso # 0.1 K/mm3 (0.0-0.1) 06/05/17 03:39 Seg Neutrophils % 64.9 % (40.0-70.0) 06/05/17 03:39 Seg Neutrophils # 5.1 K/mm3 (1.8-7.7) 06/05/17 03:39 PT 14.3 Sec. (12.2-14.9) 06/05/17 03:39 INR 1.06 (0.87-1.13) 06/05/17 03:39 APTT 29.0 Sec. (24.2-36.6) 06/05/17 03:39 Sodium 137 mmol/L (137-145) 06/06/17 11:15 Potassium 4.0 mmol/L (3.6-5.0) 06/06/17 11:15 Chloride 95.0 mmol/L (98-107) L 06/06/17 11:15 Carbon Dioxide 23 mmol/L (22-30) 06/06/17 11:15 Anion Gap 23 mmol/L 06/06/17 11:15 BUN 21 mg/dL (7-17) H 06/06/17 11:15 Creatinine 0.8 mg/dL (0.7-1.2) 06/06/17 11:15 Estimated GFR > 60 ml/min 06/06/17 11:15 BUN/Creatinine Ratio 26 % 06/06/17 11:15 Glucose 153 mg/dL (65-100) H 06/06/17 11:15 POC Glucose 194 (70-105) H 06/08/17 07:43 Hemoglobin A1c 5.8 % (4-6) 06/05/17 01:05 Calcium 9.8 mg/dL (8.4-10.2) 06/06/17 11:15 Phosphorus 2.40 mg/dL (2.5-4.5) L 06/05/17 03:39 Magnesium 1.90 mg/dL (1.7-2.3) 06/05/17 03:39 Total Bilirubin 0.40 mg/dL (0.1-1.2) 06/06/17 11:15 AST 16 units/L (5-40) 06/06/17 11:15 ALT 12 units/L (7-56) 06/06/17 11:15 Alkaline Phosphatase 50 units/L (35-129) 06/06/17 11:15 Lactate Dehydrogenase 263 units/L (91-180) H 06/06/17 11:15 Total Protein 7.2 g/dL (6.3-8.2) 06/06/17 11:15 Albumin 3.9 g/dL (3.9-5) 06/06/17 11:15 Albumin/Globulin Ratio 1.2 % 06/06/17 11:15 Triglycerides 49 mg/dL (2-149) 06/05/17 01:05 Cholesterol 145 mg/dL (50-199) 06/05/17 01:05 LDL Cholesterol Direct 88 mg/dL (50-130) 06/05/17 01:05 HDL Cholesterol 48 mg/dL (40-59) 06/05/17 01:05 Cholesterol/HDL Ratio 3.02 % 06/05/17 01:05 TSH 1.930 mlU/mL (0.270-4.200) 06/05/17 01:05 Free T4 1.61 ng/dL (0.76-1.46) H 06/05/17 01:05 Fluid Type Pleural 06/07/17 Unknown Fluid Color Red 06/07/17 Unknown Fluid Appearance Bloody 06/07/17 Unknown Fluid pH 7.428 06/07/17 Unknown Fluid WBC 1925 /mm3 06/07/17 Unknown Fluid RBC 496134 /mm3 06/07/17 Unknown Fluid Seg Neutrophils 4.0 % 06/07/17 Unknown Fluid Lymphocytes 55.0 % 06/07/17 Unknown Fluid Reactive Lymphs 2.0 % 06/07/17 Unknown Fluid Monocytes 25.0 % 06/07/17 Unknown Fluid Eosinophils 14.0 % 06/07/17 Unknown Fluid Basophils 0 % 06/07/17 Unknown
[2017-06-08] MEDS: LASIX IV SCH (10:26)
[2017-06-08] MEDS: SENOKOT PO SCH ×2 (10:27→21:15)
[2017-06-08] MEDS: LOVENOX SUB-Q SCH (10:28)
[2017-06-08] MEDS: COLACE PO SCH ×2 (10:29→21:15)
[2017-06-08] MEDS: PEPCID PO SCH ×2 (10:29→21:15)
[2017-06-08] MEDS: COZAAR PO SCH (11:28)
[2017-06-08] MEDS: NOVOLOG SUB-Q SCH ×4 (11:30→22:20)
[2017-06-08] MEDS: PRAVACHOL PO SCH (21:15)
[2017-06-09] MEDS: SYNTHROID PO SCH (05:44)
[2017-06-09] MEDS: NOVOLOG SUB-Q SCH ×4 (07:59→23:06)
[2017-06-09] MEDS: ZOFRAN IV PRN (08:43)
[2017-06-09] MEDS: DUONEB *Not for PRN Use IH SCH ×3 (08:57→20:36)
[2017-06-09] MEDS: COZAAR PO SCH (10:00)
[2017-06-09] MEDS ORDERED: DIPRIVAN 10 MG/ML IV ONE (10:22)
[2017-06-09] MEDS ORDERED: DILAUDID ONE (10:24)
[2017-06-09] MEDS ORDERED: NEO SYNEPHRINE/NS Syringe(OR USE) IV ONE (10:40)
[2017-06-09] MEDS ORDERED: XYLOCAINE MPF 2% ONE ×2 (10:40→11:55)
[2017-06-09] MEDS ORDERED: ZEMURON IV ONE (10:40)
[2017-06-09] MEDS ORDERED: DECADRON ONE (10:51)
--- NOTE | 2017-06-09 11:13 | Progress Note ---
Assessment and Plan Assessment and plan: Patient is a 72-year-old Maldivian speaking woman ( speaks Divehi but he is very hard of hearing) with a history of type 2 diabetes mellitus, hypothyroidism, osteoporosis and dyslipidemia first hospitalization here at [facility] because of shortness of breath and large left pleural effusion. Patient gives a history of negative mammogram 2 years ago. He denies any heart failure. CXR read as cardiomegaly and large left pleural effusion -Left lung pleural effusion: Treat with IV diuretics, consult pulmonology, ? thoracentesis -Uncontrolled type 2 diabetes mellitus: Add ssi -Hypothyroidism: Continue Synthroid -Cardiomegaly on x-ray: Echocardiogram==>reviewed -Moderate malnutrition, suspect: Diet discussed 06/06/17: Echo pending, I ordered us guided thoracentesis per Pulmonology, risks discussed 06/07/2017: "Date of procedure: 06/07/17 Pre-op diagnosis: left pleural effusion Post-op diagnosis: other (left hemothorax) Procedure: US thoracentesis Anesthesia: local Surgeon: ALEXANDR GODINEZ Estimated blood loss: none Pathology: list (120cc) Specimen disposition: to lab Condition: stable Disposition: floor" d/w son in law and patient that can this could be lung cancer, no history of trauma. ECHO still pending 06/08/2017 Thoracentesis results pending. SonJesus used as truss assembler, he doesn't want to tell his mother the results of the test==>consults to Ethics 06/09/17: Used our Respiratory Therapist used as Lead Pony Rider, patient has nausea/vomiting x 1 this morning without abd pains, at bedside. Pulmonology following pleural fluid cytology pending. I called pathology, d/w Cielo, the specimen received yesterday. Waiting on pathology/cytology. History Interval history: Patient was seen and examined. Follow-up on current diagnosis. Overnight uneventful. Patient denies any chest pain, shortness breath, nausea/vomiting or severe headaches. Imaging, nursing note, chart, labs and old chart reviewed. Discussed with patient. Hospitalist Physical - Physical exam Narrative exam: GEN: WDWN, NAD, AWAKE, ALERT, ORIENTATED x 3 HEENT: NCAT, EOMI, PERRL, OP Clear NECK: supple, no adenopathy, no thyromegaly, no JVD CVS/HEART: RRR, NORMAL S1S2, NO JVD, pulses present bilaterally CHEST/LUNGS: unilateral left crackles with diminished air entry and breaths sounds, Symmetrical chest expansion GI/Abdomen: soft, NTND, good bowel sounds, no guarding or rebound /Bladder: no suprapubic tenderness, no CVA or paraspinal tenderness Breast exam: symmetrically, no masses palpable to axillary area, performed with assistance of nurse MY EXT/Skin: no c/c/e, no obvious rash MSK: FROM x 4 Neuro: CN 2-12 grossly intact, no new focal deficits Psych: calm - Constitutional Vitals: Temp Pulse Resp BP Pulse Ox 98.8 F 88 16 88/53 96 06/08/17 13:54 06/09/17 09:16 06/09/17 09:16 06/09/17 08:11 06/09/17 08:58 Results - Labs CBC & Chem 7: 06/05/17 03:39 06/06/17 11:15 Labs: Laboratory Last Values WBC 7.9 K/mm3 (4.5-11.0) 06/05/17 03:39 RBC 4.05 M/mm3 (3.65-5.03) 06/05/17 03:39 Hgb 12.4 gm/dl (10.1-14.3) 06/05/17 03:39 Hct 36.5 % (30.3-42.9) 06/05/17 03:39 MCV 90 fl (79-97) 06/05/17 03:39 MCH 31 pg (28-32) 06/05/17 03:39 MCHC 34 % (30-34) 06/05/17 03:39 RDW 13.1 % (13.2-15.2) L 06/05/17 03:39 Plt Count 291 K/mm3 (140-440) 06/05/17 03:39 Lymph % (Auto) 26.2 % (13.4-35.0) 06/05/17 03:39 [place] % (Auto) 6.3 % (0.0-7.3) 06/05/17 03:39 Eos % (Auto) 1.7 % (0.0-4.3) 06/05/17 03:39 Baso % (Auto) 0.9 % (0.0-1.8) 06/05/17 03:39 Lymph # 2.1 K/mm3 (1.2-5.4) 06/05/17 03:39 [place] # 0.5 K/mm3 (0.0-0.8) 06/05/17 03:39 Eos # 0.1 K/mm3 (0.0-0.4) 06/05/17 03:39 Baso # 0.1 K/mm3 (0.0-0.1) 06/05/17 03:39 Seg Neutrophils % 64.9 % (40.0-70.0) 06/05/17 03:39 Seg Neutrophils # 5.1 K/mm3 (1.8-7.7) 06/05/17 03:39 PT 14.3 Sec. (12.2-14.9) 06/05/17 03:39 INR 1.06 (0.87-1.13) 06/05/17 03:39 APTT 29.0 Sec. (24.2-36.6) 06/05/17 03:39 Sodium 137 mmol/L (137-145) 06/06/17 11:15 Potassium 4.0 mmol/L (3.6-5.0) 06/06/17 11:15 Chloride 95.0 mmol/L (98-107) L 06/06/17 11:15 Carbon Dioxide 23 mmol/L (22-30) 06/06/17 11:15 Anion Gap 23 mmol/L 06/06/17 11:15 BUN 21 mg/dL (7-17) H 06/06/17 11:15 Creatinine 0.8 mg/dL (0.7-1.2) 06/06/17 11:15 Estimated GFR > 60 ml/min 06/06/17 11:15 BUN/Creatinine Ratio 26 % 06/06/17 11:15 Glucose 153 mg/dL (65-100) H 06/06/17 11:15 POC Glucose 198 (70-105) H 06/09/17 09:10 Hemoglobin A1c 5.8 % (4-6) 06/05/17 01:05 Calcium 9.8 mg/dL (8.4-10.2) 06/06/17 11:15 Phosphorus 2.40 mg/dL (2.5-4.5) L 06/05/17 03:39 Magnesium 1.90 mg/dL (1.7-2.3) 06/05/17 03:39 Total Bilirubin 0.40 mg/dL (0.1-1.2) 06/06/17 11:15 AST 16 units/L (5-40) 06/06/17 11:15 ALT 12 units/L (7-56) 06/06/17 11:15 Alkaline Phosphatase 50 units/L (35-129) 06/06/17 11:15 Lactate Dehydrogenase 263 units/L (91-180) H 06/06/17 11:15 Total Protein 7.2 g/dL (6.3-8.2) 06/06/17 11:15 Albumin 3.9 g/dL (3.9-5) 06/06/17 11:15 Albumin/Globulin Ratio 1.2 % 06/06/17 11:15 Triglycerides 49 mg/dL (2-149) 06/05/17 01:05 Cholesterol 145 mg/dL (50-199) 06/05/17 01:05 LDL Cholesterol Direct 88 mg/dL (50-130) 06/05/17 01:05 HDL Cholesterol 48 mg/dL (40-59) 06/05/17 01:05 Cholesterol/HDL Ratio 3.02 % 06/05/17 01:05 TSH 1.930 mlU/mL (0.270-4.200) 06/05/17 01:05 Free T4 1.61 ng/dL (0.76-1.46) H 06/05/17 01:05 Fluid Type Pleural 06/07/17 Unknown Fluid Color Red 06/07/17 Unknown Fluid Appearance Bloody 06/07/17 Unknown Fluid pH 7.428 06/07/17 Unknown Fluid WBC 1925 /mm3 06/07/17 Unknown Fluid RBC 838548 /mm3 06/07/17 Unknown Fluid Seg Neutrophils 4.0 % 06/07/17 Unknown Fluid Lymphocytes 55.0 % 06/07/17 Unknown Fluid Reactive Lymphs 2.0 % 06/07/17 Unknown Fluid Monocytes 25.0 % 06/07/17 Unknown Fluid Eosinophils 14.0 % 06/07/17 Unknown Fluid Basophils 0 % 06/07/17 Unknown
[2017-06-09] MEDS ORDERED: LACTATED RINGERS 0 ML ONE ×2 (11:30→11:59)
[2017-06-09] MEDS ORDERED: ZOFRAN ONE (11:32)
[2017-06-09] MEDS ORDERED: TORADOL ONE (11:32)
[2017-06-09] MEDS ORDERED: NEOSTIGMINE ONE (11:35)
[2017-06-09] MEDS ORDERED: ROBINUL ONE ×2 (11:35→11:43)
[2017-06-09] MEDS: COLACE PO SCH ×2 (12:06→22:59)
[2017-06-09] MEDS: SENOKOT PO SCH ×2 (12:06→23:00)
[2017-06-09] MEDS: PEPCID PO SCH ×2 (12:06→23:00)
[2017-06-09] MEDS: LASIX IV SCH (12:07)
[2017-06-09] MEDS: LOVENOX SUB-Q SCH (12:07)
[2017-06-09] MEDS: PRAVACHOL PO SCH (22:59)
[2017-06-10] MEDS: SYNTHROID PO SCH (07:06)
[2017-06-10] MEDS: DUONEB *Not for PRN Use IH SCH ×3 (07:50→21:17)
[2017-06-10] MEDS: NOVOLOG SUB-Q SCH ×4 (08:56→22:11)
[2017-06-10] MEDS: PEPCID PO SCH ×2 (10:06→22:10)
[2017-06-10] MEDS: LASIX IV SCH (10:06)
[2017-06-10] MEDS: COLACE PO SCH ×2 (10:06→22:11)
[2017-06-10] MEDS: SENOKOT PO SCH ×2 (10:06→22:11)
[2017-06-10] MEDS: COZAAR PO SCH (10:08)
[2017-06-10] MEDS: LOVENOX SUB-Q SCH (10:08)
[2017-06-10] MEDS: ZOFRAN IV PRN (12:46)
--- NOTE | 2017-06-10 12:51 | Query- Dyspnea ---
Deagaurav Shabazz Date:___06/10/2017 Clinical Appeals Auditor/CDS:__Nguyen Phone#:___[phone] Exercise your independent professional judgment when responding to query. Questions asked do not imply a particular answer is desired or expected. We greatly appreciate your clarification on this issue. Clinical Documentation States: 72 Year old female was admitted on 06/04/2017 for SOB. The Hospitalist (Dr. Hayes) progress note on 06/09/2017 states "CXR read as cardiomegaly and large left pleural effusion -Left lung pleural effusion: Treat with IV diuretics, consult pulmonology, ? thoracentesis." Clinical Findings Show: RR: 24 NE: 110 Please clarify if the patient had any of the following conditions based on the above clinical findings: [ ] Respiratory Failure [ ] Acute [ ] Acute on Chronic [ ] Chronic [ ] Respiratory failure due to trauma [ ] Acute Respiratory Distress Syndrome [ ] Other: [ ] Unable to determine [ ] Comment/Explanation: __SIRS, not respiratory failure, poa Present on Admission: [ ] Yes (Y) [ ] Clinically undeterminable (W) [ ] No (N) Please also document response in your Progress Notes and/or Discharge Summary and indicate if the condition was present on admission. KANU
[2017-06-10 15:16] LABS: LDH,Body Fluid 1816; Total Protein,Body Fluid 5.5 (15.0-45.0); Triglycerides,Body Fluid 31
--- NOTE | 2017-06-10 16:20 | Progress Note ---
Assessment and Plan Assessment and plan: Patient is a 72-year-old Ghanaian speaking woman ( speaks Slovak but he is very hard of hearing) with a history of type 2 diabetes mellitus, hypothyroidism, osteoporosis and dyslipidemia first hospitalization here at [facility] because of shortness of breath and large left pleural effusion. Patient gives a history of negative mammogram 2 years ago. He denies any heart failure. CXR read as cardiomegaly and large left pleural effusion -Left lung pleural effusion: Treat with IV diuretics, consult pulmonology, ? thoracentesis -Uncontrolled type 2 diabetes mellitus: Add ssi -Hypothyroidism: Continue Synthroid -Cardiomegaly on x-ray: Echocardiogram==>reviewed -Moderate malnutrition, suspect: Diet discussed 06/06/17: Echo pending, I ordered us guided thoracentesis per Pulmonology, risks discussed 06/07/2017: "Date of procedure: 06/07/17 Pre-op diagnosis: left pleural effusion Post-op diagnosis: other (left hemothorax) Procedure: US thoracentesis Anesthesia: local Surgeon: ALEXANDR GODINEZ Estimated blood loss: none Pathology: list (120cc) Specimen disposition: to lab Condition: stable Disposition: floor" d/w son in law and patient that can this could be lung cancer, no history of trauma. ECHO still pending 06/08/2017 Thoracentesis results pending. SonJesus used as teller supervisor, he doesn't want to tell his mother the results of the test==>consults to Ethics 06/09/17: Used our Respiratory Therapist used as County Administrator, patient has nausea/vomiting x 1 this morning without abd pains, at bedside. Pulmonology following pleural fluid cytology pending. I called pathology, d/w Cielo, the specimen received yesterday. Waiting on pathology/cytology. 06/10/2017: nurse MY was the Ghanaian teller supervisor, she wanted to know her diagnosis, and patient have no objection in knowing the diagnosis. D/w pathologist, The pleural fluid is a primary lung malignancy, ER negative. Consulted Heme/Onc. Most likely discharge tomorrow History Interval history: Patient was seen and examined. Follow-up on current diagnosis. Overnight uneventful. Patient denies any chest pain, shortness breath, nausea/vomiting or severe headaches. Imaging, nursing note, chart, labs and old chart reviewed. Discussed with patient. Hospitalist Physical - Physical exam Narrative exam: GEN: WDWN, NAD, AWAKE, ALERT, ORIENTATED x 3 HEENT: NCAT, EOMI, PERRL, OP Clear NECK: supple, no adenopathy, no thyromegaly, no JVD CVS/HEART: RRR, NORMAL S1S2, NO JVD, pulses present bilaterally CHEST/LUNGS: unilateral left crackles with diminished air entry and breaths sounds, Symmetrical chest expansion GI/Abdomen: soft, NTND, good bowel sounds, no guarding or rebound /Bladder: no suprapubic tenderness, no CVA or paraspinal tenderness Breast exam: symmetrically, no masses palpable to axillary area, performed with assistance of nurse MY EXT/Skin: no c/c/e, no obvious rash MSK: FROM x 4 Neuro: CN 2-12 grossly intact, no new focal deficits Psych: calm - Constitutional Vitals: Temp Pulse Resp BP Pulse Ox 98.5 F 108 H 18 79/47 95 06/10/17 14:27 06/10/17 14:52 06/10/17 14:52 06/10/17 14:27 06/10/17 14:27 Results - Labs CBC & Chem 7: 06/05/17 03:39 06/06/17 11:15 Labs: Laboratory Last Values WBC 7.9 K/mm3 (4.5-11.0) 06/05/17 03:39 RBC 4.05 M/mm3 (3.65-5.03) 06/05/17 03:39 Hgb 12.4 gm/dl (10.1-14.3) 06/05/17 03:39 Hct 36.5 % (30.3-42.9) 06/05/17 03:39 MCV 90 fl (79-97) 06/05/17 03:39 MCH 31 pg (28-32) 06/05/17 03:39 MCHC 34 % (30-34) 06/05/17 03:39 RDW 13.1 % (13.2-15.2) L 06/05/17 03:39 Plt Count 291 K/mm3 (140-440) 06/05/17 03:39 Lymph % (Auto) 26.2 % (13.4-35.0) 06/05/17 03:39 [place] % (Auto) 6.3 % (0.0-7.3) 06/05/17 03:39 Eos % (Auto) 1.7 % (0.0-4.3) 06/05/17 03:39 Baso % (Auto) 0.9 % (0.0-1.8) 06/05/17 03:39 Lymph # 2.1 K/mm3 (1.2-5.4) 06/05/17 03:39 [place] # 0.5 K/mm3 (0.0-0.8) 06/05/17 03:39 Eos # 0.1 K/mm3 (0.0-0.4) 06/05/17 03:39 Baso # 0.1 K/mm3 (0.0-0.1) 06/05/17 03:39 Seg Neutrophils % 64.9 % (40.0-70.0) 06/05/17 03:39 Seg Neutrophils # 5.1 K/mm3 (1.8-7.7) 06/05/17 03:39 PT 14.3 Sec. (12.2-14.9) 06/05/17 03:39 INR 1.06 (0.87-1.13) 06/05/17 03:39 APTT 29.0 Sec. (24.2-36.6) 06/05/17 03:39 Sodium 137 mmol/L (137-145) 06/06/17 11:15 Potassium 4.0 mmol/L (3.6-5.0) 06/06/17 11:15 Chloride 95.0 mmol/L (98-107) L 06/06/17 11:15 Carbon Dioxide 23 mmol/L (22-30) 06/06/17 11:15 Anion Gap 23 mmol/L 06/06/17 11:15 BUN 21 mg/dL (7-17) H 06/06/17 11:15 Creatinine 0.8 mg/dL (0.7-1.2) 06/06/17 11:15 Estimated GFR > 60 ml/min 06/06/17 11:15 BUN/Creatinine Ratio 26 % 06/06/17 11:15 Glucose 153 mg/dL (65-100) H 06/06/17 11:15 POC Glucose 133 (70-105) H 06/10/17 12:21 Hemoglobin A1c 5.8 % (4-6) 06/05/17 01:05 Calcium 9.8 mg/dL (8.4-10.2) 06/06/17 11:15 Phosphorus 2.40 mg/dL (2.5-4.5) L 06/05/17 03:39 Magnesium 1.90 mg/dL (1.7-2.3) 06/05/17 03:39 Total Bilirubin 0.40 mg/dL (0.1-1.2) 06/06/17 11:15 AST 16 units/L (5-40) 06/06/17 11:15 ALT 12 units/L (7-56) 06/06/17 11:15 Alkaline Phosphatase 50 units/L (35-129) 06/06/17 11:15 Lactate Dehydrogenase 263 units/L (91-180) H 06/06/17 11:15 Total Protein 7.2 g/dL (6.3-8.2) 06/06/17 11:15 Albumin 3.9 g/dL (3.9-5) 06/06/17 11:15 Albumin/Globulin Ratio 1.2 % 06/06/17 11:15 Triglycerides 49 mg/dL (2-149) 06/05/17 01:05 Cholesterol 145 mg/dL (50-199) 06/05/17 01:05 LDL Cholesterol Direct 88 mg/dL (50-130) 06/05/17 01:05 HDL Cholesterol 48 mg/dL (40-59) 06/05/17 01:05 Cholesterol/HDL Ratio 3.02 % 06/05/17 01:05 CA 125 Antigen 102 U/mL (<35) H 06/06/17 14:45 TSH 1.930 mlU/mL (0.270-4.200) 06/05/17 01:05 Free T4 1.61 ng/dL (0.76-1.46) H 06/05/17 01:05 Fluid Type Pleural 06/07/17 Unknown Fluid Color Red 06/07/17 Unknown Fluid Appearance Bloody 06/07/17 Unknown Fluid pH 7.428 06/07/17 Unknown Fluid WBC 1925 /mm3 06/07/17 Unknown Fluid RBC 945348 /mm3 06/07/17 Unknown Fluid Seg Neutrophils 4.0 % 06/07/17 Unknown Fluid Lymphocytes 55.0 % 06/07/17 Unknown Fluid Reactive Lymphs 2.0 % 06/07/17 Unknown Fluid Monocytes 25.0 % 06/07/17 Unknown Fluid Eosinophils 14.0 % 06/07/17 Unknown Fluid Basophils 0 % 06/07/17 Unknown Fluid Glucose 117 mg/dL (40-70) H 06/07/17 Unknown Fluid Total Protein 5.5 (15.0-45.0) L 06/07/17 Unknown Fluid LDH 1816 06/07/17 Unknown Fluid Triglycerides 31 06/07/17 Unknown
[2017-06-10] MEDS: PRAVACHOL PO SCH (22:11)
[2017-06-11] MEDS: SYNTHROID PO SCH (05:10)
[2017-06-11] MEDS: DUONEB *Not for PRN Use IH SCH ×2 (07:46→14:42)
[2017-06-11] MEDS: NOVOLOG SUB-Q SCH ×2 (08:00→12:47)
[2017-06-11 08:01] VITALS: BP 85/56
[2017-06-11] MEDS: LOVENOX SUB-Q SCH (09:48)
[2017-06-11] MEDS: COLACE PO SCH (09:49)
[2017-06-11] MEDS: SENOKOT PO SCH (09:49)
[2017-06-11] MEDS: PEPCID PO SCH (09:49)
[2017-06-11] MEDS: COZAAR PO SCH (09:50)
[2017-06-11] MEDS: LASIX IV SCH (09:51)
--- NOTE | 2017-06-11 10:22 | Hem/Onc Consultation ---
History of Present Illness - Reason for Consult Consult date: 06/11/17 - History of Present Illness dictated Past History Past Medical History: diabetes, other (hypothyroidism) Past Surgical History: thyroidectomy, Other Social history: full code. denies: smoking, alcohol abuse, IV drug use Family history: no significant family history Medications and Allergies Allergies Allergy/AdvReac Type Severity Reaction Status Date / Time ceftriaxone [From Rocephin] Allergy Angioedema Verified 06/07/17 07:22 Home Medications Medication Instructions Recorded Confirmed Last Taken Type Alendronate Sodium [Fosamax] 70 mg PO QWEEK 06/04/17 06/04/17 Unknown History Fluticasone [Flonase] 1 spray INNOSTRIL DAILY 06/04/17 06/04/17 Unknown History Levothyroxine [Synthroid] 75 mcg PO DAILY 06/04/17 06/04/17 Unknown History Losartan [Cozaar] 50 mg PO DAILY 06/04/17 06/04/17 Unknown History Pravastatin [Pravachol] 40 mg PO DAILY 06/04/17 06/04/17 Unknown History metFORMIN [Glucophage] 500 mg PO BID 06/04/17 06/04/17 Unknown History Active Meds: Active Medications Acetaminophen (Tylenol) 650 mg PO Q4H PRN PRN Reason: Pain MILD(1-3)/Fever >100.5/VARELA Albuterol (Proventil) 2.5 mg IH Q3HRT PRN PRN Reason: Shortness Of Breath Albuterol/Ipratropium (Duoneb *Not For Prn Use*) 1 ampul IH TIDRT [facility] Last Admin: 06/11/17 07:46 Dose: 1 ampul Bisacodyl (Dulcolax) 10 mg TN QDAY PRN PRN Reason: Constipation unrelieved by MOM Dextrose (D50w (25gm) Syringe) 50 ml IV PRN PRN PRN Reason: Hypoglycemia Diphenhydramine HCl (Benadryl) 25 mg IV Q6H PRN PRN Reason: Itching Last Admin: 06/05/17 13:47 Dose: 25 mg Docusate Sodium (Colace) 100 mg PO BID [facility] Last Admin: 06/11/17 09:49 Dose: 100 mg Enoxaparin Sodium (Lovenox) 40 mg SUB-Q QDAY [facility] Last Admin: 06/11/17 09:48 Dose: 40 mg Famotidine (Pepcid) 20 mg PO BID [facility] Last Admin: 06/11/17 09:49 Dose: 20 mg Furosemide (Lasix) 40 mg IV QDAY [facility] Last Admin: 06/11/17 09:51 Dose: Not Given Insulin Aspart (Novolog) 0 units SUB-Q ACHS [facility] PRN Reason: Protocol Last Admin: 06/11/17 08:00 Dose: Not Given Levothyroxine Sodium (Synthroid) 75 mcg PO DAILY@0600 [facility] Last Admin: 06/11/17 05:10 Dose: 75 mcg Losartan Potassium (Cozaar) 50 mg PO DAILY [facility] Last Admin: 06/11/17 09:50 Dose: Not Given Magnesium Hydroxide (Milk Of Magnesia) 30 ml PO Q4H PRN PRN Reason: Constipation Ondansetron HCl (Zofran) 4 mg IV Q8H PRN PRN Reason: N/V unrelieved by Claudine Last Admin: 06/10/17 12:46 Dose: 4 mg Oxycodone/Acetaminophen (Percocet 5/325) 1 tab PO Q6H PRN PRN Reason: Pain, Moderate (4-6) Last Admin: 06/07/17 19:33 Dose: 1 tab Pravastatin Sodium (Pravachol) 40 mg PO QHS [facility] Last Admin: 06/10/17 22:11 Dose: 40 mg Senna (Senokot) 8.6 mg PO Q12HR [facility] Last Admin: 06/11/17 09:49 Dose: 8.6 mg Zolpidem Tartrate (Ambien) 5 mg PO QHS PRN PRN Reason: Insomnia Exam - Constitutional Vitals: Last Vital Signs Temp 97.4 F L 06/11/17 07:58 Pulse 90 06/11/17 09:50 Resp 18 06/11/17 09:19 BP 85/56 06/11/17 09:50 Pulse Ox 97 06/11/17 10:00 Results - Labs lab Results: Laboratory Results - last 24 hr 06/07/17 06/10/17 06/10/17 Unknown 12:21 16:48 POC Glucose 133 H 121 H Fluid Glucose 117 H Fluid Total Protein 5.5 L Fluid LDH 1816 Fluid Triglycerides 31 06/10/17 21:49 POC Glucose 172 H Fluid Glucose Fluid Total Protein Fluid LDH Fluid Triglycerides
--- NOTE | 2017-06-11 12:18 | Consultation ---
REFERRING PHYSICIAN: Dr. Conrad Hayes. REASON FOR CONSULTATION: Lung CA. HISTORY OF PRESENT ILLNESS: The patient is a 72-year-old very pleasant Ukrainian female who presented to the hospital with worsening shortness of breath. She has history of diabetes, hypothyroidism. On her hospital course, she was found to have a large left-sided pleural infusion. The patient did have a pleuracentesis done, which did show evidence of an adenocarcinoma. This looks like a lung primary. Oncology consult was called. The patient also had an elevated CA-125 at 102. The patient denies any SOLARIS ADMINISTRATOR problems. She does not smoke. Denies any previous history of malignancy. She has had no significant weight loss. Denies any family history of malignancy. PAST MEDICAL HISTORY: Positive for diabetes, thyroid issues. SOCIAL HISTORY: Does not smoke or drink. PHYSICAL EXAMINATION: GENERAL: The patient is a pleasant female. HEENT: Unremarkable. CHEST: Decreased breath sounds in the left lung. CARDIOVASCULAR: Regular rate and rhythm. ABDOMEN: Soft. EXTREMITIES: No clubbing, cyanosis, or edema. LABORATORY DATA: The patient's hemoglobin was 12.4 on 06/05/2017, platelets 291 and white count 7.9. ASSESSMENT: Large pleural effusion with pathology showing adenocarcinoma, lung primary. PLAN: At this time, we will get a CT of the abdomen and pelvis. If she gets discharged, I will see her as an outpatient. I will order ALK, EGFR and ROS1 on her pathology from the pleural fluid. We will discuss with the patient's patient via suspender cutter. We will follow. JOB# [id number] DEMARIO/LAURE
--- NOTE | 2017-06-11 12:54 | Discharge Summary ---
Providers - Providers Date of Admission: 06/04/17 17:26 Date of discharge: 06/11/17 Attending physician: CHERY AVILA 06/08/17 09:55 Consult to Ethics Committee [CONS] Routine Reason For Exam: family doesn't want to tell patient the results 06/11/17 08:10 Consult to Physician [CONS] Routine Consulting Provider: CAROL CAZARES Reason For Exam: newly diagnosis Lung Cancer Place consult to:: answering service Notified:: yes Phone number called:: [phone] If yes, spoke with:: maco Time called:: 08:18 Comment:: julian Primary care physician: BUSINESS DEVELOPMENT PROFESSIONAL Hospitalization Condition: Stable Hospital course: Patient is a 72-year-old Maori speaking woman ( speaks Romanian but he is very hard of hearing) with a history of type 2 diabetes mellitus, hypothyroidism, osteoporosis and dyslipidemia first hospitalization here at [facility] because of shortness of breath and large left pleural effusion. Patient gives a history of negative mammogram 2 years ago. He denies any heart failure. CXR read as cardiomegaly and large left pleural effusion Final diagnoses: Metastatic Malignancy of the left lung with pleural effusion/ mets to pleural area Discharge diagnoses: -Left lung pleural effusion: Treat with IV diuretics, consult pulmonology, ? thoracentesis -Uncontrolled type 2 diabetes mellitus: Add ssi -Hypothyroidism: Continue Synthroid -Cardiomegaly on x-ray: Echocardiogram==>reviewed -Moderate malnutrition, suspect: Diet discussed 06/06/17: Echo pending, I ordered us guided thoracentesis per Pulmonology, risks discussed 06/07/2017: "Date of procedure: 06/07/17 Pre-op diagnosis: left pleural effusion Post-op diagnosis: other (left hemothorax) Procedure: US thoracentesis Anesthesia: local Surgeon: ALEXANDR GODINEZ Estimated blood loss: none Pathology: list (120cc) Specimen disposition: to lab Condition: stable Disposition: floor" d/w son in law and patient that can this could be lung cancer, no history of trauma. ECHO still pending 06/08/2017 Thoracentesis results pending. SonJesus used as pipe recovery specialist, he doesn't want to tell his mother the results of the test==>consults to Ethics 06/09/17: Used our Respiratory Therapist used as [employer], patient has nausea/vomiting x 1 this morning without abd pains, at bedside. Pulmonology following pleural fluid cytology pending. I called pathology, d/w Cielo, the specimen received yesterday. Waiting on pathology/cytology. 06/10/2017: nurse MY was the Maori pipe recovery specialist, she wanted to know her diagnosis, and patient have no objection in knowing the diagnosis. D/w pathologist, The pleural fluid is a primary lung malignancy, ER negative. Consulted Heme/Onc. Most likely discharge tomorrow 06/11/2017: nurse My was the [employer] pipe recovery specialist. Also, D/w Dr. Cazares. Disposition: DC-01 TO HOME OR SELFCARE Time spent for discharge: 37 min Core Measure Documentation - Palliative Care Palliative Care/ Comfort Measures: Not Applicable - Core Measures Any of the following diagnoses?: none - VTE Discharge Requirements Deep Vein Thrombosis/Pulmonary Embolism Present on Admission: No Has pt received <5 days of overlap therapy or INR<2.0: No Anticoagulant overlap therapy prescribed at discharge: No Contraindication No Overlap Therapy order at DC: Not Indicated Exam - Physical Exam Narrative exam: GEN: WDWN, NAD, AWAKE, ALERT, ORIENTATED x 3 HEENT: NCAT, EOMI, PERRL, OP Clear NECK: supple, no adenopathy, no thyromegaly, no JVD CVS/HEART: RRR, NORMAL S1S2, NO JVD, pulses present bilaterally CHEST/LUNGS: unilateral left crackles with diminished air entry and breaths sounds, Symmetrical chest expansion GI/Abdomen: soft, NTND, good bowel sounds, no guarding or rebound /Bladder: no suprapubic tenderness, no CVA or paraspinal tenderness Breast exam: symmetrically, no masses palpable to axillary area, performed with assistance of nurse MY EXT/Skin: no c/c/e, no obvious rash MSK: FROM x 4 Neuro: CN 2-12 grossly intact, no new focal deficits Psych: calm - Constitutional Vitals: Temp Pulse Resp BP Pulse Ox 97.4 F L 90 18 85/56 97 06/11/17 07:58 06/11/17 09:50 06/11/17 09:19 06/11/17 09:50 06/11/17 10:00 Plan Activity: other (no strenous activity until cleared by pcp) Diet: diabetic Special Instructions: record blood sugar diary Follow up with: PRIMARY CARE, [Primary Care Provider] - 7 Days CAROL CAZARES MD [Staff Physician] - 7 Days Prescriptions: Docusate Sodium [Colace CAP] 100 mg PO BID #60 capsule Metoclopramide [Reglan ORAL LIQ] 10 mg PO Q8H PRN #30 day PRN Reason: Nausea oxyCODONE /ACETAMINOPHEN [Percocet 5/325 mg] 1 tab PO Q6H PRN #30 tablet PRN Reason: Pain, Moderate (4-6)
--- NOTE | 2017-06-11 15:10 | Cat Scan Report ---
FINAL REPORT PROCEDURE: CT ABDOMEN PELVIS W CON TECHNIQUE: Computerized axial tomography of the abdomen and pelvis was performed after the IV injection of iodinated nonionic contrast. Oral contrast was also administered. HISTORY: cancer COMPARISON: None FINDINGS: Visualized lower thorax: Left pleural effusion with underlying consolidation. Liver: 4 millimeter subcapsular cyst of the right lobe hepatic dome posteriorly. Spleen: Normal size and attenuation. Gallbladder and biliary system: Normal. Pancreas: Normal. Adrenals: Normal. Kidneys: Normal. GI tract: Suboptimally opacified with oral contrast, grossly normal. Lymph nodes and mesentery: Normal. Vasculature: Normal. Bladder: Normal. Reproductive organs: Suspect fibroid uterus. Peritoneum: No ascites. Musculoskeletal structures: Mild degenerative changes of the spine. Lumbar levoscoliosis. Other: None. IMPRESSION: Left pleural effusion with underlying atelectasis with or without associated infiltrate. 4 millimeter posterior superior right lobe hepatic cyst. Suspect leiomyomatous change of the uterus. Further evaluation with ultrasound would be of benefit. Mild degenerative changes of the spine. Lumbar levoscoliosis.
== END 2017-06-11 16:41 | disposition home or self-care (01) | DRG 180 ==
LOC: ED 11:18 → 2B-ACE 17:26
PROVIDERS: ADMIT Internal Medicine Geriatric Medicine; ATTEND Internal Medicine
PROC: 0W9B3ZZ Drainage of Left Pleural Cavity, Percutaneous Approach (ICD-10-PCS; principal; 2017-06-06)
DX: C78.2 Secondary malignant neoplasm of pleura (principal); J18.9 Pneumonia, unspecified organism; E44.0 Moderate protein-calorie malnutrition; Z68.1 Body mass index [BMI] 19.9 or less, adult; R65.10 Systemic inflammatory response syndrome (SIRS) of non-infectious origin without acute organ dysfunction; C34.92 Malignant neoplasm of unspecified part of left bronchus or lung; J94.2 Hemothorax; M81.0 Age-related osteoporosis without current pathological fracture; J91.0 Malignant pleural effusion; E11.9 Type 2 diabetes mellitus without complications; E03.9 Hypothyroidism, unspecified; Z90.89 Acquired absence of other organs; Z79.899 Other long term (current) drug therapy; Z79.84 Long term (current) use of oral hypoglycemic drugs
CPT/HCPCS: 32555; 36415; 71020; 71045; 71260; 74177; 80048; 80053; 80061; 82947; 82962; 83036; 83605; 83615; 83735; 84100; 84160; 84439; 84443; 84478; 85025; 85610; 85730; 86304; 87040; 87116; 88112; 88305; 88341; 88342; 89051; 93005; 93010; 93306; 94640; 94760; 96374; 96375; 99285; A9270-GY; J0456; J0696; J1100; J1170; J1200; J1650; J1815; J1885; J1940; J2370; J2405; J2704; J2710; J2930; J7050; J7120; Q9967